=== PATIENT | male | born 1965 | race Caucasian/White ===

== ENCOUNTER 2019-09-27 14:59 | Emergency (ER) | payer SELFPAY ==
[2019-09-27] MEDS ORDERED: Albuterol/Ipratropium 3.0-0.5 MG/3 ML Neb Soln NEB ONE ×4 (15:05→16:55)
[2019-09-27] MEDS ORDERED: methylPREDNISolone Sodium Succinate 125 MG/2 ML SDV IVPUSH ONE (15:05)
[2019-09-27 15:51] LABS: BLOOD UREA NITROGEN,BUN 11 mg/dL (7.0-18.0); CARBON DIOXIDE,CO2 27.9 mmol/L (21.0-32.0); CHLORIDE,CL 104 mmol/L (98-107); GLUCOSE RANDOM 160 mg/dL (74-106); POTASSIUM,K 4.1 mmol/L (3.5-5.1); SODIUM,NA 142 mmol/L (136-148)
[2019-09-27] MEDS ORDERED: Albuterol 0.5% 5 MG/ML Neb Soln 20 ML Bottle NEB ONE (16:23)
--- NOTE | 2019-09-27 16:31 | CR ---
Chest: 2 views of the chest were obtained. Comparison: No previous chest x-ray. Heart size and mediastinum are normal. Lungs are clear. Small azygos lobe is noted. Bony structures appear within normal limits for the patient's age. Impression: 1. Nothing acute is appreciated on 2 view chest x-ray. Diagnostic code #2 This report was dictated in [place] Standard Time
--- NOTE | 2019-09-27 16:36 | EDM.PDOC ---
ED HPI GENERAL MEDICAL PROBLEM - General Chief Complaint: Respiratory Problem Stated Complaint: SOB Time Seen by Provider: 09/27/19 14:59 - History of Present Illness INITIAL COMMENTS - FREE TEXT/NARRATIVE: 54-year-old male presents with shortness of breath and coughing. Patient has a history of COPD is not to take his medication for more than 2 months. Patient is a history of peripheral neuropathy for unknown reason. These symptoms have not changed. Patient reports a four-day history of worsening cough and this morning he had difficulty walking to his car. Patient denies any recent trips or travels. Patient has any history of heart disease. Patient denies any chest pain or palpitations. Patient denies : General: No fevers or chills. No malaise or fatigue. No recent change in weight. No thirst. Heent: No change in vision, no earache, sore throat or sinus congestion. Neck: No pain or stiffness. Cardiovascular: No chest pain or pressure. No palpitations. Gastrointestinal: No abdominal pain, nausea, vomiting or diarrhea, melena or bright red blood per rectum. Genitourinary: No urinary frequency, urgency, hesitancy or dysuria. Muskuloskeletal: No joint or muscle pain, no back pain, no recent trauma. Dermatologic: No rash, no itching, no lesions. Neuro: No headache, seizures, numbness, tingling or weakness. Psych: No depressive symptoms. - Related Data Allergies Allergy/AdvReac Type Severity Reaction Status Date / Time codeine Allergy Itching Verified 09/27/19 15:11 Home Meds: Home Meds predniSONE [Prednisone] 40 mg PO DAILY #8 tablet 09/27/19 [Rx] Past Medical History Respiratory History: Reports: COPD - Infectious Disease History Infectious Disease History: Reports: Chicken Pox - Past Surgical History HEENT Surgical History: Reports: Tonsillectomy Musculoskeletal Surgical History: Reports: Other (See Below) Other Musculoskeletal Surgeries/Procedures:: Right Femur x3 Social & Family History - Family History Family Medical History: Noncontributory - Tobacco Use Smoking Status *Q: Never Smoker - Alcohol Use Days Per Week of Alcohol Use: 7 Number of Drinks Per Day: 6 Total Drinks Per Week: 42 - Recreational Drug Use Recreational Drug Use: Yes Drug Use in Last 12 Months: Yes Recreational Drug Type: Reports: Methamphetamine Recreational Drug Use Frequency: Monthly ED ROS GENERAL - Review of Systems Review Of Systems: Comprehensive ROS is negative, except as noted in HPI. ED EXAM, GENERAL - Physical Exam Exam: See Below Free Text/Narrative:: General: No acute distress. Comfortable. Heent: Examination revealed no pallor, no icterus, no lymphadenopathy. The patient has normal posterior pharynx, moist mucous membranes. Neck: Supple. No JVD. No rigidity. Heart: Normal rate. Reg rhythm. No murmurs appreciated. Lungs: Significant widespread wheezing. Symmetric. No focal findings. Abdomen: Nontender, non-distended, soft, no CVA tenderness. Neuro: Pt is moving all four extremities. EOMI. PERRL. Normal speech. Skin: Exposed areas appeared normally perfused, warm, normal color with no meaningful rashes or lesions. Extremities: Peripheral examination revealed no pedal edema. Peripheral pulses were 2+. EKG INTERPRETATION EKG Date: 09/27/19 Time: 16:04 Rhythm: Other (S tach) Rate (Beats/Min): 100 Comparison: NA - No Prior EKG EKG Interpretation Comments: QRS wide. Left axis deviation. Right bundle branch block. No clear evidence of ischemia. No previous EKG. Course - Vital Signs Last Recorded V/S: Last Vital Signs Temp 36.4 C 09/27/19 15:09 Pulse 102 H 09/27/19 16:12 Resp 22 H 09/27/19 15:09 BP 140/90 09/27/19 16:12 Pulse Ox 96 09/27/19 16:12 - Orders/Labs/Meds Orders: Active Orders 24 hr Category Date Time Status EKG Documentation Completion [RC] STAT Care 09/27/19 15:06 Active RT Aerosol Therapy [RC] ASDIRECTED Care 09/27/19 15:05 Active RT Aerosol Therapy [RC] ASDIRECTED Care 09/27/19 16:24 Active UA RFX NGUYEN AND CULT IF INDIC [URIN] Stat Lab 09/27/19 15:05 Ordered Labs: Laboratory Tests 09/27/19 09/27/19 09/27/19 Range/Units 15:15 15:15 15:15 WBC 6.28 (4.0-11.0) K/uL RBC 5.21 (4.50-5.90) M/uL Hgb 17.0 (13.0-17.0) g/dL Hct 49.9 (38.0-50.0) % MCV 95.8 (80.0-98.0) fL MCH 32.6 H (27.0-32.0) pg MCHC 34.1 (31.0-37.0) g/dL RDW Std Deviation 45.5 (28.0-62.0) fl RDW Coeff of Stu 13 (11.0-15.0) % Plt Count 214 (150-400) K/uL MPV 9.80 (7.40-12.00) fL Neut % (Auto) 31.2 L (48.0-80.0) % Lymph % (Auto) 47.9 H (16.0-40.0) % [place] % (Auto) 10.8 (0.0-15.0) % Eos % (Auto) 9.1 H (0.0-7.0) % Baso % (Auto) 1.0 (0.0-1.5) % Neut # (Auto) 2.0 (1.4-5.7) K/uL Lymph # (Auto) 3.0 H (0.6-2.4) K/uL [place] # (Auto) 0.7 (0.0-0.8) K/uL Eos # (Auto) 0.6 (0.0-0.7) K/uL Baso # (Auto) 0.1 (0.0-0.1) K/uL Nucleated RBC % 0.0 /100WBC Nucleated RBCs # 0 K/uL D-Dimer, Quantitative 0.19 (0.0-0.50) mg/L FEU VBG pH (7.31-7.41) VBG pCO2 (35-45) mmHG VBG pO2 (30-40) mmHG VBG HCO3 (22-30) mEq/L VBG Total CO2 (41-51) mmol/L VBG Base Excess (-3.0-3.0) Sodium 142 (136-148) mmol/L Potassium 4.1 (3.5-5.1) mmol/L Chloride 104 (98-107) mmol/L Carbon Dioxide 27.9 (21.0-32.0) mmol/L BUN 11 (7.0-18.0) mg/dL Creatinine 1.1 (0.8-1.3) mg/dL Est Cr Clr Drug Dosing 87.18 mL/min Estimated GFR (MDRD) > 60.0 ml/min Glucose 160 H (74-106) mg/dL Calcium 8.6 (8.5-10.1) mg/dL Total Bilirubin 0.4 (0.2-1.0) mg/dL AST 32 (15-37) IU/L ALT 67 H (14-63) IU/L Alkaline Phosphatase 66 (46-116) U/L Troponin I < 0.050 (0.000-0.056) ng/mL Total Protein 7.4 (6.4-8.2) g/dL Albumin 4.0 (3.4-5.0) g/dL Globulin 3.4 (2.6-4.0) g/dL Albumin/Globulin Ratio 1.2 (0.9-1.6) 09/27/19 Range/Units 15:15 WBC (4.0-11.0) K/uL RBC (4.50-5.90) M/uL Hgb (13.0-17.0) g/dL Hct (38.0-50.0) % MCV (80.0-98.0) fL MCH (27.0-32.0) pg MCHC (31.0-37.0) g/dL RDW Std Deviation (28.0-62.0) fl RDW Coeff of Stu (11.0-15.0) % Plt Count (150-400) K/uL MPV (7.40-12.00) fL Neut % (Auto) (48.0-80.0) % Lymph % (Auto) (16.0-40.0) % [place] % (Auto) (0.0-15.0) % Eos % (Auto) (0.0-7.0) % Baso % (Auto) (0.0-1.5) % Neut # (Auto) (1.4-5.7) K/uL Lymph # (Auto) (0.6-2.4) K/uL [place] # (Auto) (0.0-0.8) K/uL Eos # (Auto) (0.0-0.7) K/uL Baso # (Auto) (0.0-0.1) K/uL Nucleated RBC % /100WBC Nucleated RBCs # K/uL D-Dimer, Quantitative (0.0-0.50) mg/L FEU VBG pH 7.39 (7.31-7.41) VBG pCO2 48 H (35-45) mmHG VBG pO2 30 (30-40) mmHG VBG HCO3 29 (22-30) mEq/L VBG Total CO2 25 L (41-51) mmol/L VBG Base Excess 2.6 (-3.0-3.0) Sodium (136-148) mmol/L Potassium (3.5-5.1) mmol/L Chloride (98-107) mmol/L Carbon Dioxide (21.0-32.0) mmol/L BUN (7.0-18.0) mg/dL Creatinine (0.8-1.3) mg/dL Est Cr Clr Drug Dosing mL/min Estimated GFR (MDRD) ml/min Glucose (74-106) mg/dL Calcium (8.5-10.1) mg/dL Total Bilirubin (0.2-1.0) mg/dL AST (15-37) IU/L ALT (14-63) IU/L Alkaline Phosphatase (46-116) U/L Troponin I (0.000-0.056) ng/mL Total Protein (6.4-8.2) g/dL Albumin (3.4-5.0) g/dL Globulin (2.6-4.0) g/dL Albumin/Globulin Ratio (0.9-1.6) Meds: Medications Discontinued Medications Generic Name Dose Route Start Last Admin Trade Name Miguelq PRN Reason Stop Dose Admin Albuterol 10 mg 09/27/19 16:23 09/27/19 16:57 Proventil Neb Soln NEB 09/27/19 16:24 Not Given ONETIME ONE Albuterol/Ipratropium 3 ml 09/27/19 15:05 09/27/19 15:18 Duoneb 3.0-0.5 Mg/3 Ml NEB 09/27/19 15:06 3 ml ONETIME ONE Administration Albuterol/Ipratropium Confirm 09/27/19 16:50 Duoneb 3.0-0.5 Mg/3 Ml Administered 09/27/19 16:51 Dose 9 ml .ROUTE .STK-MED ONE Albuterol/Ipratropium 3 ml 09/27/19 16:55 09/27/19 16:56 Duoneb 3.0-0.5 Mg/3 Ml NEB 09/27/19 16:56 3 ml ONETIME ONE Administration Albuterol/Ipratropium 3 ml 09/27/19 16:55 09/27/19 16:56 Duoneb 3.0-0.5 Mg/3 Ml NEB 09/27/19 16:56 3 ml ONETIME ONE Administration Albuterol/Ipratropium 3 ml 09/27/19 16:55 09/27/19 16:57 Duoneb 3.0-0.5 Mg/3 Ml NEB 09/27/19 16:56 3 ml ONETIME ONE Administration Methylprednisolone Sodium Succinate 125 mg 09/27/19 15:05 09/27/19 15:18 Solu-Medrol IVPUSH 09/27/19 15:06 125 mg ONETIME ONE Administration - Radiology Interpretation Free Text/Narrative:: The patient states he feels much better after respiratory treatments x4. In fact he is asking to go home now because he is feeling so much better. After initial albuterol treatment, the patient felt shaky and strange and began to hyperventilate some. Made him feel lightheaded but this resolved very well after 4 additional treatments. He began to have a productive cough and is wheezing improved greatly. The patient told the nurses stable time that he was ready to go home because he felt much better. Patient need to follow-up with a primary care provider. Patient will return with any worsening. Presentation not consistent with acute coronary syndrome. There is no old EKG to compare his EKG with however there is no chest pain no palpitations and nonischemic EKG. - Re-Assessments/Exams Free Text/Narrative Re-Assessment/Exam: Nuclear indication of pneumonia. No pneumonia on x-ray. No significant leukocytosis. Hold antibiotics. Follow primary care. 09/27/19 17:25 Free Text/Narrative Re-Assessment/Exam: Mild tachycardia on arrival after initial treatment. This would be expected given his albuterol. While tachycardia continues after multiple treatments here. Patient feels much better discharge home. 09/27/19 17:30 Departure - Departure Time of Disposition: 17:29 Disposition: Home, Self-Care 01 Condition: Good Clinical Impression: COPD exacerbation - Discharge Information Prescriptions: predniSONE [Prednisone] 40 mg PO DAILY #8 tablet Instructions: Chronic Obstructive Pulmonary Disease, [id number], How to Use a Metered Dose Inhaler Referrals: PCP,None [Primary Care Provider] - Forms: ED Department Discharge Additional Instructions: You were having a wheezing attack likely from chronic obstructive pulmonary disease. Take your prednisone as directed. You need to follow-up with a primary care provider. One is provided below. Return to emergency with any worsening whatsoever. [facility] - Primary Care [address] [place] [id number] [facility] [address] [place] [id number] The following information is given to patients seen in the emergency department who are being discharged to home. This information is to outline your options for follow-up care. We provide all patients seen in our emergency department with a follow-up referral. The need for follow-up, as well as the timing and circumstances, are variable depending upon the specifics of your emergency department visit. If you don't have a primary care physician on staff, we will provide you with a referral. We always advise you to contact your personal physician following an emergency department visit to inform them of the circumstance of the visit and for follow-up with them and/or the need for any referrals to a consulting specialist. The emergency department will also refer you to a specialist when appropriate. This referral assures that you have the opportunity for follow-up care with a specialist. All of these measure are taken in an effort to provide you with optimal care, which includes your follow-up. Under all circumstances we always encourage you to contact your private physician who remains a resource for coordinating your care. When calling for follow-up care, please make the office aware that this follow-up is from your recent emergency room visit. If for any reason you are refused follow-up, please contact the [facility] Emergency Department at and asked to speak to the emergency department charge nurse. Sepsis Event Note - Evaluation Sepsis Screening Result: No Definite Risk - Focused Exam Vital Signs: Vital Signs Temp Pulse Resp BP Pulse Ox 09/27/19 16:12 102 H 140/90 96 09/27/19 15:32 107 H 98 09/27/19 15:09 36.4 C 114 H 22 H 148/86 H 92 L Date Exam was Performed: 09/27/19 Time Exam was Performed: 17:18 - My Orders Last 24 Hours: My Active Orders 09/27/19 16:24 RT Aerosol Therapy [RC] ASDIRECTED - Assessment/Plan Last 24 Hours: My Active Orders 09/27/19 16:24 RT Aerosol Therapy [RC] ASDIRECTED
[2019-09-27] MEDS ORDERED: Albuterol/Ipratropium 3.0-0.5 MG/3 ML Neb Soln ONE (16:50)
== END 2019-09-27 19:19 | disposition home or self-care (01) ==
LOC: MW.ED 14:59
DX: J44.1 Chronic obstructive pulmonary disease with (acute) exacerbation (principal); Z88.5 Allergy status to narcotic agent
CPT/HCPCS: 36415; 71046; 80053; 82803; 84484; 85025; 85379; 93005; 96374; 99285; J2930; J7620-GY

== ENCOUNTER 2021-03-08 13:04 | Inpatient (IN) | payer SELFPAY ==
[2021-03-08] MEDS ORDERED: Sodium Chloride 0.9% 10 ML Syringe FLUSH PRN (13:09)
[2021-03-08] MEDS ORDERED: cefTRIAXone 1 GM in Premix Bag 1 BAG IV ONE (13:14)
--- NOTE | 2021-03-08 13:18 | EDM.PDOC ---
ED HPI GENERAL MEDICAL PROBLEM - General Chief Complaint: Neuro Symptoms/Deficits Stated Complaint: POSSIBLY STROKE Time Seen by Provider: 03/08/21 13:07 Source of Information: Reports: Patient - History of Present Illness INITIAL COMMENTS - FREE TEXT/NARRATIVE: Patient presents with for possible code stroke. Apparently the patient is a heavy drinker. He was found by his family on the ground this morning and there was concern for right-sided facial droop. The patient was sent to the emergency department for evaluation of code stroke. Patient states that he had some tingling to the side of his face. Patient denies any significant headache or chest pain. No exacerbating or alleviating conditions. Patient denies infectious complaints other than some redness to the skin the site of a recent tattoo placed to the left lateral leg. - Related Data Allergies Allergy/AdvReac Type Severity Reaction Status Date / Time codeine Allergy Itching Verified 09/27/19 15:11 Home Meds: Home Meds Albuterol Sulfate [Albuterol Sulfate Hfa] 2 inh IH QID PRN 03/08/21 [History] Sertraline [Zoloft] 50 mg PO DAILY 03/08/21 [History] atorvaSTATin [Lipitor] 20 mg PO BEDTIME 03/08/21 [History] lisinopriL [Lisinopril] 20 mg PO DAILY 03/08/21 [History] metFORMIN HCl [Metformin HCl] 500 mg PO BIDMEALS 03/08/21 [History] traZODone 50 mg PO BEDTIME PRN 03/08/21 [History] Past Medical History Respiratory History: Reports: COPD - Infectious Disease History Infectious Disease History: Reports: Chicken Pox - Past Surgical History HEENT Surgical History: Reports: Tonsillectomy Musculoskeletal Surgical History: Reports: Other (See Below) Other Musculoskeletal Surgeries/Procedures:: Right Femur x3 Social & Family History - Family History Family Medical History: No Pertinent Family History ED ROS GENERAL - Review of Systems Review Of Systems: Comprehensive ROS is negative, except as noted in HPI. Constitutional: Denies: Fever Respiratory: Denies: Shortness of Breath Cardiovascular: Denies: Chest Pain Neurological: Reports: Numbness, Weakness. Denies: Headache ED EXAM, GENERAL - Physical Exam Exam: See Below Free Text/Narrative:: CONSTITUTIONAL: Mild distress. diaphoretic SKIN: Warm, dry, and intact without rash HENT: Normocephalic, atraumatic, PULMONARY: clear to ausculation bilaterally. No rales, rhonchi, wheezing CARDIOVASCULAR: regular rate, No murmur, rubs, or gallops GASTROINTESTINAL: soft, nondistended, nontender NEUROLOGIC: normal speech, II-XII intact. light touch/5/5 power equal and symmetric in upper and lower extremities without deficit. Good peripheral vision. Patient able to read and describe context well. NIH stroke scale zero MUSCULOSKELETAL: no gross deformities, atraumatic PSYCHIATRIC: normal mood and affect #1 Interpretation Time: 13:52 EKG Interpretation Comments: 88, normal sinus rhythm, right bundle branch block, unchanged as compared to prior EKG in September Course - Vital Signs Text/Narrative:: Differential diagnosis: CVA, Stewart's palsy, EtOH intoxication, TIA, intracranial hemorrhage, alcohol withdrawal seizure, other Patient presents complaining of of facial droop. I have not seen any evidence of facial droop or acute focal neurologic deficit here, however, patient could have symptoms consistent with TIA. Patient be admitted for neuro checks plus or minus MRI is indicated. The remainder of the work-up is effectively unremarkable. Patient is not having chest pain, has unchanged EKG with negative troponin. Head CT is otherwise negative for acute bleed. Patient does have evidence of some EtOH intoxication that could be a contributing factor. Last Recorded V/S: Last Vital Signs Temp 36.3 C 03/08/21 13:05 Pulse 78 03/08/21 13:05 Resp 18 03/08/21 13:05 BP 142/70 H 03/08/21 13:05 Pulse Ox 98 03/08/21 13:05 - Orders/Labs/Meds Orders: Active Orders 24 hr Category Date Time Status CULTURE BLOOD [BC] Stat Lab 03/08/21 13:37 Received CULTURE BLOOD [BC] Stat Lab 03/08/21 13:37 Received DRUG SCREEN, URINE [URCHEM] Stat Lab 03/08/21 13:10 Ordered UA W/NGUYEN RFLX IF INDICATED [URIN] Stat Lab 03/08/21 13:11 Ordered Blood Culture x2 Reflex Set [OM.PC] Stat Oth 03/08/21 13:11 Ordered Medication Orders Acetaminophen (Acetaminophen 325 Mg Tab) 650 mg PO Q4H PRN PRN Reason: Pain (Mild 1-3)/fever Albuterol/Ipratropium (Albuterol/Ipratropium 3.0-0.5 Mg/3 Ml Neb Soln) 3 ml NEB Q4HRRT PRN PRN Reason: Shortness Of Breath/wheezing Aspirin (Aspirin 81 Mg Tab.Ec) 81 mg PO DAILY ONEAL Atorvastatin Calcium (Atorvastatin 40 Mg Tab) 80 mg PO BEDTIME ONEAL Docusate Sodium (Docusate Sodium 100 Mg Cap) 100 mg PO BID PRN PRN Reason: Constipation Folic Acid (Folic Acid 1 Mg Tab) 1 mg PO BEDTIME ONEAL Ceftriaxone Sodium/Dextrose 1 (gm/ Premix) 50 mls @ 100 mls/hr IV Q24H ONEAL Vancomycin HCl (Vancomycin 1.5 Gm/300 Ml) 300 mls @ 200 mls/hr IV Q12H ONEAL Lorazepam (Lorazepam 2 Mg/Ml Sdv) 0 mg IVPUSH Q2H PRN; Protocol PRN Reason: CIWA Ondansetron HCl (Ondansetron 4 Mg/2 Ml Sdv) 4 mg IVPUSH Q4H PRN PRN Reason: Nausea Pantoprazole Sodium (Pantoprazole 40 Mg Tab.Cr) 40 mg PO AC[facility]AKFAST [facility] Sodium Chloride (Sodium Chloride 0.9% 2.5 Ml Syringe) 2.5 ml FLUSH ASDIRECTED PRN PRN Reason: Keep Vein Open Thiamine HCl (Thiamine 100 Mg Tab) 100 mg PO BEDTIME ONEAL Vancomycin HCl (Pharmacy To Dose - Vancomycin) 1 dose .XX ASDIRECTED [facility] Labs: Laboratory Tests 03/08/21 03/08/21 03/08/21 Range/Units 13:00 13:00 13:00 WBC 10.66 (4.0-11.0) K/uL RBC 4.99 (4.50-5.90) M/uL Hgb 17.3 H (13.0-17.0) g/dL Hct 48.2 (38.0-50.0) % MCV 96.6 (80.0-98.0) fL MCH 34.7 H (27.0-32.0) pg MCHC 35.9 (31.0-37.0) g/dL RDW Std Deviation 47.0 (28.0-62.0) fl RDW Coeff of Stu 13 (11.0-15.0) % Plt Count 264 (150-400) K/uL MPV 9.90 (7.40-12.00) fL Neut % (Auto) 57.0 (48.0-80.0) % Lymph % (Auto) 29.1 (16.0-40.0) % [place] % (Auto) 10.8 (0.0-15.0) % Eos % (Auto) 2.7 (0.0-7.0) % Baso % (Auto) 0.4 (0.0-1.5) % Neut # (Auto) 6.1 H (1.4-5.7) K/uL Lymph # (Auto) 3.1 H (0.6-2.4) K/uL [place] # (Auto) 1.2 H (0.0-0.8) K/uL Eos # (Auto) 0.3 (0.0-0.7) K/uL Baso # (Auto) 0.0 (0.0-0.1) K/uL Nucleated RBC % 0.0 /100WBC Nucleated RBCs # 0 K/uL INR 1.07 Sodium 137 (136-148) mmol/L Potassium 4.3 (3.5-5.1) mmol/L Chloride 101 (98-107) mmol/L Carbon Dioxide 25.0 (21.0-32.0) mmol/L BUN 14 (7.0-18.0) mg/dL Creatinine 0.9 (0.8-1.3) mg/dL Est Cr Clr Drug Dosing 111.18 mL/min Estimated GFR (MDRD) > 60.0 ml/min Glucose 119 H (74-106) mg/dL Calcium 8.6 (8.5-10.1) mg/dL Total Bilirubin 0.9 (0.2-1.0) mg/dL AST 100 H (15-37) IU/L ALT 129 H (14-63) IU/L Alkaline Phosphatase 78 (46-116) U/L Creatine Kinase 258 (26-308) U/L Troponin I < 0.050 (0.000-0.056) ng/mL Total Protein 7.8 (6.4-8.2) g/dL Albumin 4.3 (3.4-5.0) g/dL Globulin 3.5 (2.6-4.0) g/dL Albumin/Globulin Ratio 1.2 (0.9-1.6) Ethyl Alcohol 150 mg/dL Meds: Medications Generic Name Dose Route Start Last Admin Trade Name Frephilippe PRN Reason Stop Dose Admin Acetaminophen 650 mg 03/08/21 15:40 Acetaminophen 325 Mg Tab PO Q4H PRN Pain (Mild 1-3)/fever Albuterol/Ipratropium 3 ml 03/08/21 15:40 Albuterol/Ipratropium 3.0-0.5 Mg/3 Ml Neb Soln NEB Q4HRRT PRN Shortness Of Breath/wheezing Aspirin 81 mg 03/08/21 16:00 Aspirin 81 Mg Tab.Ec PO DAILY ONEAL Atorvastatin Calcium 80 mg 03/08/21 21:00 Atorvastatin 40 Mg Tab PO BEDTIME ONEAL Docusate Sodium 100 mg 03/08/21 15:40 Docusate Sodium 100 Mg Cap PO BID PRN Constipation Folic Acid 1 mg 03/08/21 21:00 Folic Acid 1 Mg Tab PO BEDTIME ONEAL Ceftriaxone Sodium/Dextrose 1 50 mls @ 100 mls/hr 03/09/21 12:00 gm/ Premix IV Q24H ONEAL Vancomycin HCl 300 mls @ 200 mls/hr 03/08/21 17:00 Vancomycin 1.5 Gm/300 Ml IV Q12H ONEAL Lorazepam 0 mg 03/08/21 15:47 Lorazepam 2 Mg/Ml Sdv IVPUSH Q2H PRN CIWA Protocol Ondansetron HCl 4 mg 03/08/21 15:40 Ondansetron 4 Mg/2 Ml Sdv IVPUSH Q4H PRN Nausea Pantoprazole Sodium 40 mg 03/09/21 07:30 Pantoprazole 40 Mg Tab.Cr PO ACBREAKFAST [facility] Sodium Chloride 2.5 ml 03/08/21 15:40 Sodium Chloride 0.9% 2.5 Ml Syringe FLUSH ASDIRECTED PRN Keep Vein Open Thiamine HCl 100 mg 03/08/21 21:00 Thiamine 100 Mg Tab PO BEDTIME ONEAL Vancomycin HCl 1 dose 03/08/21 16:30 Pharmacy To Dose - Vancomycin .XX ASDIRECTED ONEAL Discontinued Medications Generic Name Dose Route Start Last Admin Trade Name Alin PRN Reason Stop Dose Admin Ceftriaxone Sodium/Dextrose 1 50 mls @ 100 mls/hr 03/08/21 13:14 03/08/21 15:17 gm/ Premix IV 03/08/21 13:43 100 mls/hr ONETIME ONE Administration Pantoprazole Sodium 40 mg/ 10 mls @ 300 mls/hr 03/08/21 16:04 Sodium Chloride IV 03/08/21 16:05 NOW ONE Sodium Chloride 10 ml 03/08/21 13:09 03/08/21 15:27 Sodium Chloride 0.9% 10 Ml Syringe FLUSH 10 ml ASDIRECTED PRN Administration Keep Vein Open Sodium Chloride 2.5 ml 03/08/21 13:09 03/08/21 15:27 Sodium Chloride 0.9% 2.5 Ml Syringe FLUSH 2.5 ml ASDIRECTED PRN Administration Keep Vein Open Departure - Departure Time of Disposition: 16:32 Disposition: Admitted As Inpatient 64 Condition: Good Clinical Impression: TIA (transient ischemic attack), ETOH abuse - Discharge Information Sepsis Event Note (ED) - Focused Exam Vital Signs: Vital Signs Temp Pulse Resp BP Pulse Ox 03/08/21 13:05 36.3 C 78 18 142/70 H 98 - My Orders Last 24 Hours: My Active Orders 03/08/21 13:10 DRUG SCREEN, URINE [URCHEM] Stat 03/08/21 13:11 UA W/NGUYEN RFLX IF INDICATED [URIN] Stat Blood Culture x2 Reflex Set [OM.PC] Stat 03/08/21 13:37 CULTURE BLOOD [BC] Stat CULTURE BLOOD [BC] Stat - Assessment/Plan Last 24 Hours: My Active Orders 03/08/21 13:10 DRUG SCREEN, URINE [URCHEM] Stat 03/08/21 13:11 UA W/NGUYEN RFLX IF INDICATED [URIN] Stat Blood Culture x2 Reflex Set [OM.PC] Stat 03/08/21 13:37 CULTURE BLOOD [BC] Stat CULTURE BLOOD [BC] Stat
--- NOTE | 2021-03-08 13:38 | CR ---
INDICATION: Chest Pain TECHNIQUE: Chest radiograph 1 view COMPARISON: 09/27/2019 FINDINGS: The sensitivity and specificity of the exam are moderately limited by the patient`s body habitus. Mediastinum: The mediastinum is normal in appearance. The heart silhouette is normal in size and morphology. Lung: There is an azygos fissure present which is a normal variant. Both lungs are clear. No sign of pleural effusion seen. No pneumothorax is identified. Bone and Soft tissue: Unremarkable for age. IMPRESSION: 1. No acute cardiopulmonary disease is seen. Dictated by Dustin Almazan MD @ 03/08/2021 1:37:31 PM Prelim Report By Dr. Dustin Almazan @ 03/08/2021 1:37:33 PM Dictated by: MD @ 03/08/2021 13:37:58 (Electronically Signed)
[2021-03-08 13:43] LABS: BLOOD UREA NITROGEN,BUN 14 mg/dL (7.0-18.0); CHLORIDE,CL 101 mmol/L (98-107); GLUCOSE RANDOM 119 mg/dL (74-106); POTASSIUM,K 4.3 mmol/L (3.5-5.1); SODIUM,NA 137 mmol/L (136-148)
--- NOTE | 2021-03-08 13:59 | CT ---
INDICATION: Stroke. COMPARISON: None. TECHNIQUE: CT of the head without IV contrast. Coronal and sagittal reconstructions are provided. FINDINGS: No intracranial hemorrhage, mass effect, or evidence of acute infarct. No midline shift. No abnormal extra-axial fluid collections. Normal caliber ventricular system. Orbits and extraocular muscles are symmetric. Near complete opacification of the left maxillary sinus. Scattered mild paranasal sinus mucosal thickening elsewhere. The mastoid air cells are clear. No acute fracture. Small benign-appearing calcification in the soft tissues adjacent to the right parotid gland. Soft tissues are otherwise unremarkable. IMPRESSION: : 1. No acute intracranial findings. 2. Near complete opacification of the left maxillary sinus and scattered paranasal sinus mucosal thickening. Please note that all CT scans at this facility use dose modulation, iterative reconstruction, and/or weight-based dosing when appropriate to reduce radiation dose to as low as reasonably achievable. Dictated by Fidelina Acosta MD @ 03/08/2021 1:57:[address] Fidelina Acosta @ Mar 08 2021 1:57PM
[2021-03-08] MEDS: Sodium Chloride 0.9% 2.5 ML Syringe FLUSH PRN ×3 (15:25→15:27)
[2021-03-08] MEDS ORDERED: Sodium Chloride 0.9% 2.5 ML Syringe FLUSH PRN (15:40)
[2021-03-08] MEDS ORDERED: Albuterol/Ipratropium 3.0-0.5 MG/3 ML Neb Soln NEB PRN (15:40)
[2021-03-08] MEDS ORDERED: Docusate Sodium 100 MG Cap PO PRN (15:40)
[2021-03-08] MEDS ORDERED: Ondansetron 4 MG/2 ML SDV IVPUSH PRN (15:40)
--- NOTE | 2021-03-08 15:50 | CT ---
DATE: 03/08/2021. CLINICAL HISTORY: Patient with acute neurological deficit. TECHNIQUE: Standard helical CT image acquisition through the head and neck after intravenous contrast bolus enhancement was performed. Multiplanar reconstructed images performed on a separate workstation. COMPARISON: None available. FINDINGS: The origins of the great vessels from the aortic arch are patent. The origins of the right and left vertebral arteries are patent. The common carotid arteries are patent. Mild atherosclerotic plaque involving the right carotid bifurcation but without significant stenoses at the origins of the proximal internal carotid arteries by NASCET criteria. The more distal cervical segments of the internal carotid arteries are patent. The cervical segments of the vertebral arteries are patent. No intracranial proximal large vessel occlusion or flow-limiting luminal stenosis. The visualized lung apices are unremarkable. The thyroid gland is unremarkable. There are degenerative changes in the cervical spine. IMPRESSION: 1. No intracranial proximal large vessel occlusion or flow limiting luminal stenosis. 2. Patent cervical arterial vasculature without hemodynamically significant luminal stenosis. Please note that all CT scans at this facility use dose modulation, iterative reconstruction, and/or weight-based dosing when appropriate to reduce radiation dose to as low as reasonably achievable. Dictated by Bandar Valdez MD @ 03/08/2021 3:50:[address] Bandar Valdez @ Mar 08 2021 3:50PM
--- NOTE | 2021-03-08 16:00 | PCM.HP.2 ---
H&P History of Present Illness - General Date of Service: 03/08/21 Admit Problem/Dx: Admission Diagnosis/Problem Admission Diagnosis/Problem TIA, Transient ischemic attack Source of Information: Patient, Old Records (Clinic record from today. ) History Limitations: Reports: No Limitations - History of Present Illness Initial Comments - Free Text/Narative: This 55-year-old male with past medical history of alcohol abuse, hyperlipidemia hypertension, diabetes type 2 and COPD presented to the ER for R facial numbness and L hand numbness. Patient reports last evening his son found him on the ground at his home and had no idea what had happened. He reports since then he has had intermittent R facial numbness and tingling along with L hand numbness. He went to his PCP office with these complaints and was sent to the ER for immediate evaluation for TIA/CVA. He denies visual concerns, no neck pain. He reports some difficultly ambulating, feeling unsteady. He denies chest pain or SOB. No fevers or chills. NO URI symptoms. He denies abdominal pain, reports mild intermittent diarrhea. Denies lower extremity swelling. He reports he recently received a tattoo on his R calf, in his living room. He denies drainage, but does report redness around this. Denies recreational drug use recently, but reports many years ago. Reports significant alcohol use, 8-10 beers daily plus half a pint of whiskey daily. He reports when he stops drinking he gets shaky but denies seizures or hallucinations in the past. Reports smokeless tobacco use, 1 can a day. In the ER no leukocytosis noted hemoglobin 17.3 platelet count 264,000. INR 1.07. Sodium 137 potassium 4.3 BUN 14 creatinine 0.9 glucose 119 bilirubin 0.9 AST 18 mildly elevated 100 and 129 respectively. CK 258 troponin negative ethyl alcohol 150. Head CT obtained on patient due to stroke code no acute intracranial findings, near complete opacification of left maxillary sinus and scattered paranasal sinus mucosal thickening. NIH scale upon arrival to the ER was 0. Chest x-ray obtained reveals no acute cardiopulmonary process. Patient treated with Rocephin. Vital signs 97.4 heart rate 78 blood pressure 142/70 respiratory rate 18 oxygen 98% on room air. EKG reveals sinus rhythm with right bundle branch block unchanged from prior EKG heart rate 88 no acute ischemic changes. Head and neck CTAs obtained which reveal no intracranial proximal large vessel occlusion or flow-limiting luminal stenosis. Patent cervical arterial vasculature without hemodynamically significant luminal stenosis. PCP, Dr Cervantes - Related Data Allergies/Adverse Reactions: Allergies Allergy/AdvReac Type Severity Reaction Status Date / Time codeine Allergy Itching Verified 09/27/19 15:11 Home Medications: Home Meds Albuterol Sulfate [Albuterol Sulfate Hfa] 2 inh IH QID PRN 03/08/21 [History] Sertraline [Zoloft] 50 mg PO DAILY 03/08/21 [History] atorvaSTATin [Lipitor] 20 mg PO BEDTIME 03/08/21 [History] lisinopriL [Lisinopril] 20 mg PO DAILY 03/08/21 [History] metFORMIN HCl [Metformin HCl] 500 mg PO BIDMEALS 03/08/21 [History] traZODone 50 mg PO BEDTIME PRN 03/08/21 [History] Past Medical History Cardiovascular History: Reports: High Cholesterol, Hypertension, Other (See Below) (reports he was told he had a blockage in his heart, but denies stents or further cardiology follow up). Denies: Afib, Blood Clots/VTE/DVT Respiratory History: Reports: COPD Gastrointestinal History: Denies: GERD Psychiatric History: Reports: Addiction, Depression Endocrine/Metabolic History: Reports: Diabetes, Type II, Obesity/BMI 30+ - Infectious Disease History Infectious Disease History: Reports: Chicken Pox - Past Surgical History HEENT Surgical History: Reports: Tonsillectomy Musculoskeletal Surgical History: Reports: Other (See Below) Other Musculoskeletal Surgeries/Procedures:: Right Femur x3 Social & Family History - Family History Family Medical History: No Pertinent Family History - Tobacco Use Tobacco Use Status *Q: Current Every Day Tobacco User Tobacco Use Within Last Twelve Months: Smokeless Tobacco Packs/Tins Daily: 1 - Caffeine Use Caffeine Use: Reports: None - Alcohol Use Alcohol Use History: Yes Days Per Week of Alcohol Use: 7 Number of Drinks Per Day: 12 Total Drinks Per Week: 84 Alcohol Use Frequency: Daily - Recreational Drug Use Recreational Drug Use: No H&P Review of Systems - Review of Systems: Review Of Systems: See Below General: Reports: Weakness (generalized). Denies: Fever, Chills, Malaise HEENT: Reports: No Symptoms. Denies: Headaches, Sore Throat, Vertigo Pulmonary: Reports: No Symptoms. Denies: Shortness of Breath, Wheezing Cardiovascular: Reports: No Symptoms. Denies: Chest Pain Gastrointestinal: Reports: No Symptoms. Denies: Abdominal Pain, Nausea, Vomiting Genitourinary: Reports: No Symptoms, Dysuria. Denies: Frequency Skin: Reports: Erythema (R calf around new tattoo) Psychiatric: Reports: No Symptoms. Denies: Hallucinations (Auditory), Hallucinations (Visual) Neurological: Reports: Tremors, Gait Disturbance. Denies: Numbness, Paresthesia Hematologic/Lymphatic: Reports: No Symptoms Immunologic: Reports: No Symptoms Exam - Exam Exam: See Below - Vital Signs Vital Signs: Last Vital Signs Temp 97.4 F 03/08/21 13:05 Pulse 78 03/08/21 13:05 Resp 18 03/08/21 13:05 BP 142/70 H 03/08/21 13:05 Pulse Ox 98 03/08/21 13:05 Weight: 117.934 kg - Exam Quality Assessment: DVT Prophylaxis. No: Supplemental Oxygen General: Alert, Oriented, Cooperative HEENT: Mucosa Moist & Cascade, Posterior Pharynx Clear, Pupils Equal. No: Conjunctiva Clear (blood shot eyes) Neck: Supple, Trachea Midline, +2 Carotid Pulse wo Bruit Lungs: Clear to Auscultation, Normal Respiratory Effort Cardiovascular: Regular Rhythm. No: Systolic Murmur GI/Abdominal Exam: Normal Bowel Sounds, Soft, Non-Tender, No Mass Extremities: Normal Inspection, Normal Range of Motion, Non-Tender, No Pedal Edema Skin: Other (erythema noted to R calf where new tattoo is. No drainage, minimal induration noted. increased warm.) Neurological: Cranial Nerves Intact, Strength Equal Bilateral. No: Normal Gait (mild ataxia noted) Neuro Extensive - Mental Status: Alert, Oriented x3, Normal Mood/Affect Neuro Extensive - Motor, Sensory, Reflexes: CN II-XII Intact, Ataxia, Tremor Psychiatric: Alert, Normal Affect, Normal Mood, Withdrawal Symptoms - Patient Data Lab Results Last 24 hrs: Laboratory Results - last 24 hr 03/08/21 03/08/21 03/08/21 Range/Units 13:00 13:00 13:00 WBC 10.66 (4.0-11.0) K/uL RBC 4.99 (4.50-5.90) M/uL Hgb 17.3 H (13.0-17.0) g/dL Hct 48.2 (38.0-50.0) % MCV 96.6 (80.0-98.0) fL MCH 34.7 H (27.0-32.0) pg MCHC 35.9 (31.0-37.0) g/dL RDW Std Deviation 47.0 (28.0-62.0) fl RDW Coeff of Stu 13 (11.0-15.0) % Plt Count 264 (150-400) K/uL MPV 9.90 (7.40-12.00) fL Neut % (Auto) 57.0 (48.0-80.0) % Lymph % (Auto) 29.1 (16.0-40.0) % [place] % (Auto) 10.8 (0.0-15.0) % Eos % (Auto) 2.7 (0.0-7.0) % Baso % (Auto) 0.4 (0.0-1.5) % Neut # (Auto) 6.1 H (1.4-5.7) K/uL Lymph # (Auto) 3.1 H (0.6-2.4) K/uL [place] # (Auto) 1.2 H (0.0-0.8) K/uL Eos # (Auto) 0.3 (0.0-0.7) K/uL Baso # (Auto) 0.0 (0.0-0.1) K/uL Nucleated RBC % 0.0 /100WBC Nucleated RBCs # 0 K/uL INR 1.07 Sodium 137 (136-148) mmol/L Potassium 4.3 (3.5-5.1) mmol/L Chloride 101 (98-107) mmol/L Carbon Dioxide 25.0 (21.0-32.0) mmol/L BUN 14 (7.0-18.0) mg/dL Creatinine 0.9 (0.8-1.3) mg/dL Est Cr Clr Drug Dosing 111.18 mL/min Estimated GFR (MDRD) > 60.0 ml/min Glucose 119 H (74-106) mg/dL Calcium 8.6 (8.5-10.1) mg/dL Total Bilirubin 0.9 (0.2-1.0) mg/dL AST 100 H (15-37) IU/L ALT 129 H (14-63) IU/L Alkaline Phosphatase 78 (46-116) U/L Creatine Kinase 258 (26-308) U/L Troponin I < 0.050 (0.000-0.056) ng/mL Total Protein 7.8 (6.4-8.2) g/dL Albumin 4.3 (3.4-5.0) g/dL Globulin 3.5 (2.6-4.0) g/dL Albumin/Globulin Ratio 1.2 (0.9-1.6) Ethyl Alcohol 150 mg/dL Result Diagrams: 03/08/21 13:00 03/08/21 13:00 Sepsis Event Note - Evaluation Sepsis Screening Result: No Definite Risk - Focused Exam Vital Signs: Vital Signs Temp Pulse Resp BP Pulse Ox 03/08/21 13:05 97.4 F 78 18 142/70 H 98 - Problem List (1) TIA (transient ischemic attack) SNOMED Code(s): 240505301 ICD Code: G45.9 - TRANSIENT CEREBRAL ISCHEMIC ATTACK, UNSPECIFIED Status: Acute Current Visit: Yes (2) Cellulitis and abscess of right leg SNOMED Code(s): 981886163 ICD Code: L03.115 - CELLULITIS OF RIGHT LOWER LIMB; L02.415 - CUTANEOUS ABSCESS OF RIGHT LOWER LIMB Status: Acute Current Visit: Yes (3) HTN (hypertension) SNOMED Code(s): 93019714 ICD Code: I10 - ESSENTIAL (PRIMARY) HYPERTENSION Status: Chronic Current Visit: Yes (4) Alcohol abuse SNOMED Code(s): 88478717 ICD Code: F10.10 - ALCOHOL ABUSE, UNCOMPLICATED Status: Chronic Current Visit: Yes (5) COPD (chronic obstructive pulmonary disease) SNOMED Code(s): 58050671 ICD Code: J44.9 - CHRONIC OBSTRUCTIVE PULMONARY DISEASE, UNSPECIFIED Stat us: Chronic Current Visit: Yes (6) DM type 2 (diabetes mellitus, type 2) SNOMED Code(s): 09445703 ICD Code: E11.9 - TYPE 2 DIABETES MELLITUS WITHOUT COMPLICATIONS Status: Chronic Current Visit: Yes Qualifiers: Diabetes mellitus senior care 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 Diabetes mellitus complication status: without complication Qualified Code(s): E11.9 - Type 2 diabetes mellitus without complications (7) HLD (hyperlipidemia) SNOMED Code(s): 10730041 ICD Code: E78.5 - HYPERLIPIDEMIA, UNSPECIFIED Status: Chronic Current Visit: Yes Problem List Initiated/Reviewed/Updated: Yes Orders Last 24hrs: Active Orders 24 hr Category Date Time Status Admission Status [Patient Status] [ADT] Stat ADT 03/08/21 14:50 Active Admission Status [Patient Status] [ADT] Stat ADT 03/08/21 14:51 Active Antiembolic Devices [RC] PER UNIT ROUTINE Care 03/08/21 15:43 Active Blood Glucose Check, Bedside [RC] TIDMEALS Care 03/08/21 15:40 Active CIWAA Assessment [RC] Q4H Care 03/08/21 15:47 Active Cardiac Monitoring [RC] . DIRECTED Care 03/08/21 13:10 Active Intake and Output [RC] QSHIFT Care 03/08/21 15:43 Active Oxygen Therapy [RC] PRN Care 03/08/21 15:40 Active Pulse Oximetry [RC] ASDIRECTED Care 03/08/21 13:10 Active RT Aerosol Therapy [RC] ASDIRECTED Care 03/08/21 15:46 Active Up With Assistance [RC] ASDIRECTED Care 03/08/21 15:40 Active VTE/DVT Education [RC] PER UNIT ROUTINE Care 03/08/21 15:40 Active Vital Signs [RC] Q4H Care 03/08/21 15:40 Active PT Evaluation and Treatment [CONS] Routine Cons 03/08/21 15:40 Active Heart Healthy Diet [DIET] Diet 03/08/21 Lunch Active CBC WITH AUTO DIFF [HEME] AM Lab 03/09/21 05:11 Ordered COMPREHENSIVE METABOLIC PN,CMP [CHEM] AM Lab 03/09/21 05:11 Ordered CORONAVIRUS COVID-19 DANIAL [MOLEC] Stat Lab 03/08/21 15:04 Received CULTURE BLOOD [BC] Stat Lab 03/08/21 13:37 Received CULTURE BLOOD [BC] Stat Lab 03/08/21 13:37 Received DRUG SCREEN, URINE [URCHEM] Stat Lab 03/08/21 13:10 Ordered MAGNESIUM [CHEM] AM Lab 03/09/21 05:11 Ordered UA W/NGUYEN RFLX IF INDICATED [URIN] Stat Lab 03/08/21 13:11 Ordered VITAMIN B12 [CHEM] Routine Lab 03/08/21 15:47 Ordered Acetaminophen [TylenoL] Med 03/08/21 15:40 Active 650 mg PO Q4H PRN Albuterol/Ipratropium [DuoNeb 3.0-0.5 MG/3 ML] Med 03/08/21 15:40 Active 3 ml NEB Q4HRRT PRN Docusate Sodium [Colace] Med 03/08/21 15:40 Active 100 mg PO BID PRN Folic Acid Med 03/08/21 21:00 Active 1 mg PO BEDTIME LORazepam [Ativan] Med 03/08/21 15:47 Ordered See Protocol IVPUSH Q2H PRN Ondansetron [Zofran] Med 03/08/21 15:40 Ordered 4 mg IVPUSH Q4H PRN Sodium Chloride 0.9% [Saline Flush] Med 03/08/21 13:09 Active 10 ml FLUSH ASDIRECTED PRN Sodium Chloride 0.9% [Saline Flush] Med 03/08/21 13:09 Active 2.5 ml FLUSH ASDIRECTED PRN Sodium Chloride 0.9% [Saline Flush] Med 03/08/21 15:40 Ordered 2.5 ml FLUSH ASDIRECTED PRN Thiamine [Vitamin B-1] Med 03/08/21 21:00 Ordered 100 mg PO BEDTIME Blood Culture x2 Reflex Set [OM.PC] Stat Oth 03/08/21 13:11 Ordered Saline Lock Insert [OM.PC] Routine Oth 03/08/21 15:40 Ordered Saline Lock Insert [OM.PC] Stat Oth 03/08/21 13:10 Ordered Sequential Compression Device [OM.PC] Per Unit Routine Oth 03/08/21 15:43 Ordered Medication Orders Acetaminophen (Acetaminophen 325 Mg Tab) 650 mg PO Q4H PRN PRN Reason: Pain (Mild 1-3)/fever Albuterol/Ipratropium (Albuterol/Ipratropium 3.0-0.5 Mg/3 Ml Neb Soln) 3 ml NEB Q4HRRT PRN PRN Reason: Shortness Of Breath/wheezing Docusate Sodium (Docusate Sodium 100 Mg Cap) 100 mg PO BID PRN PRN Reason: Constipation Folic Acid (Folic Acid 1 Mg Tab) 1 mg PO BEDTIME ONEAL Lorazepam (Lorazepam 2 Mg/Ml Sdv) 0 mg IVPUSH Q2H PRN; Protocol PRN Reason: CIWA Ondansetron HCl (Ondansetron 4 Mg/2 Ml Sdv) 4 mg IVPUSH Q4H PRN PRN Reason: Nausea Sodium Chloride (Sodium Chloride 0.9% 10 Ml Syringe) 10 ml FLUSH ASDIRECTED PRN PRN Reason: Keep Vein Open Last Admin: 03/08/21 15:27 Dose: 10 ml Documented by: JOSE DE JESUS Sodium Chloride (Sodium Chloride 0.9% 2.5 Ml Syringe) 2.5 ml FLUSH ASDIRECTED PRN PRN Reason: Keep Vein Open Last Admin: 03/08/21 15:27 Dose: 2.5 ml Documented by: JOSE DE JESUS Admin: 03/08/21 15:26 Dose: 2.5 ml Documented by: JOSE DE JESUS Admin: 03/08/21 15:25 Dose: 2.5 ml Documented by: JOSE DE JESUS Sodium Chloride (Sodium Chloride 0.9% 2.5 Ml Syringe) 2.5 ml FLUSH ASDIRECTED PRN PRN Reason: Keep Vein Open Thiamine HCl (Thiamine 100 Mg Tab) 100 mg PO BEDTIME ONEAL Assessment/Plan Comment:: This 55-year-old male omitted with TIA like symptoms 1. TIA Symptoms resolved upon arrival to ER Head CT negative CTA head and neck obtained which are negative. Will obtain echo We will obtain lipid panel, TSH and A1c Monitor on telemetry Neuro checks every 4 Consult PT for evaluation and treatment. add ASA 81 mg and Atorvastatin 80 mg Obtain MRI brain in am 2. R lower leg cellulitis Add Vancomycin and continue Rocephin BC pending 3. Alcohol abuse CIWA assessment with Ativan per protocol Supplement with thiamine folic acid Check B12 levels Encourage sobriety 4. Hypertension Monitor blood pressure Restart home lisinopril Continue statin start aspirin 5. DM type II 3 times daily AC blood sugars NovoLog sliding scale Hold Metformin ADA diet We will check A1c 6. COPD DuoNebs as needed Continue albuterol inhaler VTE prophylaxis: SCDs and ambulation GI prophylaxis: Protonix CODE STATUS: Full Code Dispo: 1-2 days pending improvement
[2021-03-08] MEDS ORDERED: Pantoprazole 40 MG in Sodium Chloride 0.9% 10 ML IV ONE (16:04)
[2021-03-08] MEDS: Aspirin 81 MG Tab.EC PO SCH (16:44)
[2021-03-08] MEDS ORDERED: Iopamidol 755 MG/ML 500 ML Multipack Bottle IVPUSH STA (17:04)
[2021-03-08] MEDS: VANCOmycin 1.5 GM/300 ML 300 ML IV SCH (17:08)
[2021-03-08] MEDS: LORazepam 2 MG/ML SDV IVPUSH PRN ×2 (18:24→22:20)
[2021-03-08] MEDS: atorvaSTATin 40 MG Tab PO SCH (22:11)
[2021-03-08] MEDS: Folic Acid 1 MG Tab PO SCH (22:11)
[2021-03-08] MEDS: Thiamine 100 MG Tab PO SCH (22:11)
[2021-03-09] MEDS: VANCOmycin 1.5 GM/300 ML 300 ML IV SCH ×2 (04:50→16:16)
[2021-03-09] MEDS: LORazepam 2 MG/ML SDV IVPUSH PRN (05:05)
[2021-03-09 06:29] LABS: BLOOD UREA NITROGEN,BUN 13 mg/dL (7.0-18.0); CARBON DIOXIDE,CO2 28.5 mmol/L (21.0-32.0); CHLORIDE,CL 98 mmol/L (98-107); GLUCOSE RANDOM 124 mg/dL (74-106); POTASSIUM,K 4.1 mmol/L (3.5-5.1); SODIUM,NA 135 mmol/L (136-148)
[2021-03-09 06:32] LABS: HEMOGLOBIN A1C 5.6 %
[2021-03-09] MEDS: Pantoprazole 40 MG Tab.CR PO SCH (06:32)
[2021-03-09] MEDS ORDERED: Gadobenate Dimeglumine 529 MG/ML 20 ML SDV IVPUSH STA (07:26)
[2021-03-09] MEDS: Sertraline 50 MG Tab PO SCH (08:37)
[2021-03-09] MEDS: Aspirin 81 MG Tab.EC PO SCH (08:37)
--- NOTE | 2021-03-09 08:47 | MR ---
INDICATION: TIA. TECHNIQUE: Sagittal T1 axial FLAIR T2 diffusion-weighted susceptibility weighted and gadolinium-enhanced volumetric T1 weighted sequences. COMPARISON: CT and CTA examinations 03/08/2021. Findings : No evidence of acute ischemic infarction. No areas of diffusion restriction. No evidence of intracranial hemorrhage. Ventricles are normal in size and configuration. Motion artifact is noted on most sequences. Few small foci of nonenhancing FLAIR/T2 hyperintensity within the cerebral white matter consistent with mild chronic microvascular ischemia. Small incidental arachnoid cyst in the left middle cranial fossa is a developmental variant and has doubtful significance. Brainstem and cerebellum appear normal. The opacified left maxillary sinus and bilateral ethmoid air cells consistent with chronic sinus inflammation. IMPRESSION: 1. No evidence of acute infarction, intracranial hemorrhage, mass or enhancing lesion. 2. Mild chronic microvascular ischemic changes. 3. Inflammatory opacification left maxillary and bilateral ethmoid air cells. Dictated by Marvin Herman MD @ 03/09/2021 8:45:[address] Marvin Herman @ Mar 09 2021 8:45AM
[2021-03-09] MEDS: cefTRIAXone 1 GM in Premix Bag 1 BAG IV SCH (11:18)
[2021-03-09] MEDS ORDERED: Diazepam 5 MG Tab PO SCH (12:30)
[2021-03-09] MEDS: Diazepam 5 MG Tab PO SCH ×2 (14:05→23:31)
--- NOTE | 2021-03-09 17:51 | PCM.PN ---
- General Info Date of Service: 03/09/21 Admission Dx/Problem (Free Text): Admission Diagnosis/Problem Admission Diagnosis/Problem TIA, Transient ischemic attack - Review of Systems General: Reports: Weakness. Denies: Fever, Chills, Night Sweats HEENT: Denies: Headaches, Sore Throat Pulmonary: Denies: Pleuritic Chest Pain, Cough, Sputum, Wheezing Cardiovascular: Denies: Chest Pain, Palpitations, Edema Gastrointestinal: Denies: Abdominal Pain Genitourinary: Reports: No Symptoms Musculoskeletal: Reports: Leg Pain. Denies: Joint Pain, Joint Swelling Skin: Denies: Pruritis Neurological: Reports: Tremors, Trouble Speaking, Weakness. Denies: Confusion, Dizziness, Headache, Numbness, Paresthesia, Seizure, Syncope, Tingling, Difficulty Walking, Change in Speech, Gait Disturbance Psychiatric: Reports: Anxiety. Denies: Confusion, Depression - Patient Data Vitals - Most Recent: Last Vital Signs Temp 98.2 F 03/09/21 16:11 Pulse 67 03/09/21 16:11 Resp 20 03/09/21 16:11 BP 158/73 H 03/09/21 16:11 Pulse Ox 97 03/09/21 16:11 Weight - Most Recent: 278 lb 3.2 oz I&O - Last 24 Hours: Intake & Output 03/09/21 03/09/21 03/09/21 06:59 14:59 22:59 Intake Total 850 1000 Output Total 250 Balance 600 1000 Lab Results Last 24 Hours: Laboratory Results - last 24 hr 03/08/21 03/08/21 03/09/21 Range/Units 18:30 18:30 05:05 WBC 6.76 (4.0-11.0) K/uL RBC 4.55 (4.50-5.90) M/uL Hgb 15.5 (13.0-17.0) g/dL Hct 43.9 (38.0-50.0) % MCV 96.5 (80.0-98.0) fL MCH 34.1 H (27.0-32.0) pg MCHC 35.3 (31.0-37.0) g/dL RDW Std Deviation 45.5 (28.0-62.0) fl RDW Coeff of Stu 13 (11.0-15.0) % Plt Count 203 (150-400) K/uL MPV 9.80 (7.40-12.00) fL Neut % (Auto) 49.8 (48.0-80.0) % Lymph % (Auto) 28.8 (16.0-40.0) % [place] % (Auto) 14.2 (0.0-15.0) % Eos % (Auto) 6.8 (0.0-7.0) % Baso % (Auto) 0.4 (0.0-1.5) % Neut # (Auto) 3.4 (1.4-5.7) K/uL Lymph # (Auto) 2.0 (0.6-2.4) K/uL [place] # (Auto) 1.0 H (0.0-0.8) K/uL Eos # (Auto) 0.5 (0.0-0.7) K/uL Baso # (Auto) 0.0 (0.0-0.1) K/uL Nucleated RBC % 0.0 /100WBC Nucleated RBCs # 0 K/uL Sodium (136-148) mmol/L Potassium (3.5-5.1) mmol/L Chloride (98-107) mmol/L Carbon Dioxide (21.0-32.0) mmol/L BUN (7.0-18.0) mg/dL Creatinine (0.8-1.3) mg/dL Est Cr Clr Drug Dosing mL/min Estimated GFR (MDRD) ml/min Glucose (74-106) mg/dL POC Glucose (70-99) mg/dL Hemoglobin A1c (4.5 - 6.2) % Calcium (8.5-10.1) mg/dL Magnesium (1.8-2.4) mg/dL Total Bilirubin (0.2-1.0) mg/dL AST (15-37) IU/L ALT (14-63) IU/L Alkaline Phosphatase (46-116) U/L Total Protein (6.4-8.2) g/dL Albumin (3.4-5.0) g/dL Globulin (2.6-4.0) g/dL Albumin/Globulin Ratio (0.9-1.6) Triglycerides (0-200) mg/dL Cholesterol (50-200) mg/dL LDL Cholesterol, Calc (60-180) mg/dL VLDL Cholesterol (5-55) mg/dL HDL Cholesterol (40-60) mg/dL Cholesterol/HDL Ratio (3.3-6.0) TSH, Ultra Sensitive (0.36-3.74) uIU/mL Urine Color YELLOW Urine Appearance CLEAR Urine pH 5.5 (5.0-8.0) Ur Specific [place] 1.020 (1.001-1.035) Urine Protein NEGATIVE (NEGATIVE) mg/dL Urine Glucose (UA) NEGATIVE (NEGATIVE) mg/dL Urine Ketones 15 H (NEGATIVE) mg/dL Urine Occult Blood TRACE-INTACT H (NEGATIVE) Urine Nitrite NEGATIVE (NEGATIVE) Urine Bilirubin NEGATIVE (NEGATIVE) Urine Urobilinogen 1.0 (<2.0) EU/dL Ur Leukocyte Esterase NEGATIVE (NEGATIVE) Urine RBC 1-3 (0-2/HPF) Urine WBC 0-1 (0-5/HPF) Ur Epithelial Cells RARE (NONE-FEW) Urine Bacteria RARE (NEGATIVE) Urine Opiates Screen NEGATIVE (NEGATIVE) Ur Oxycodone Screen NEGATIVE (NEGATIVE) Urine Methadone Screen NEGATIVE (NEGATIVE) Ur Barbiturates Screen NEGATIVE (NEGATIVE) Ur Phencyclidine Scrn NEGATIVE (NEGATIVE) Ur Amphetamine Screen NEGATIVE (NEGATIVE) U Methamphetamines Scrn NEGATIVE (NEGATIVE) U Benzodiazepines Scrn NEGATIVE (NEGATIVE) U Cocaine Metab Screen NEGATIVE (NEGATIVE) U Marijuana (THC) Screen NEGATIVE (NEGATIVE) 03/09/21 03/09/21 03/09/21 Range/Units 05:05 05:05 06:29 WBC (4.0-11.0) K/uL RBC (4.50-5.90) M/uL Hgb (13.0-17.0) g/dL Hct (38.0-50.0) % MCV (80.0-98.0) fL MCH (27.0-32.0) pg MCHC (31.0-37.0) g/dL RDW Std Deviation (28.0-62.0) fl RDW Coeff of Stu (11.0-15.0) % Plt Count (150-400) K/uL MPV (7.40-12.00) fL Neut % (Auto) (48.0-80.0) % Lymph % (Auto) (16.0-40.0) % [place] % (Auto) (0.0-15.0) % Eos % (Auto) (0.0-7.0) % Baso % (Auto) (0.0-1.5) % Neut # (Auto) (1.4-5.7) K/uL Lymph # (Auto) (0.6-2.4) K/uL [place] # (Auto) (0.0-0.8) K/uL Eos # (Auto) (0.0-0.7) K/uL Baso # (Auto) (0.0-0.1) K/uL Nucleated RBC % /100WBC Nucleated RBCs # K/uL Sodium 135 L (136-148) mmol/L Potassium 4.1 (3.5-5.1) mmol/L Chloride 98 (98-107) mmol/L Carbon Dioxide 28.5 (21.0-32.0) mmol/L BUN 13 (7.0-18.0) mg/dL Creatinine 0.8 (0.8-1.3) mg/dL Est Cr Clr Drug Dosing 118.45 mL/min Estimated GFR (MDRD) > 60.0 ml/min Glucose 124 H (74-106) mg/dL POC Glucose 131 H (70-99) mg/dL Hemoglobin A1c 5.6 (4.5 - 6.2) % Calcium 8.1 L (8.5-10.1) mg/dL Magnesium 1.7 L (1.8-2.4) mg/dL Total Bilirubin 1.3 H (0.2-1.0) mg/dL AST 53 H (15-37) IU/L ALT 91 H (14-63) IU/L Alkaline Phosphatase 65 (46-116) U/L Total Protein 6.4 (6.4-8.2) g/dL Albumin 3.5 (3.4-5.0) g/dL Globulin 2.9 (2.6-4.0) g/dL Albumin/Globulin Ratio 1.2 (0.9-1.6) Triglycerides 86 (0-200) mg/dL Cholesterol 133 (50-200) mg/dL LDL Cholesterol, Calc 60 (60-180) mg/dL VLDL Cholesterol 17 (5-55) mg/dL HDL Cholesterol 56 (40-60) mg/dL Cholesterol/HDL Ratio 2.4 L (3.3-6.0) TSH, Ultra Sensitive 2.37 (0.36-3.74) uIU/mL Urine Color Urine Appearance Urine pH (5.0-8.0) Ur Specific [place] (1.001-1.035) Urine Protein (NEGATIVE) mg/dL Urine Glucose (UA) (NEGATIVE) mg/dL Urine Ketones (NEGATIVE) mg/dL Urine Occult Blood (NEGATIVE) Urine Nitrite (NEGATIVE) Urine Bilirubin (NEGATIVE) Urine Urobilinogen (<2.0) EU/dL Ur Leukocyte Esterase (NEGATIVE) Urine RBC (0-2/HPF) Urine WBC (0-5/HPF) Ur Epithelial Cells (NONE-FEW) Urine Bacteria (NEGATIVE) Urine Opiates Screen (NEGATIVE) Ur Oxycodone Screen (NEGATIVE) Urine Methadone Screen (NEGATIVE) Ur Barbiturates Screen (NEGATIVE) Ur Phencyclidine Scrn (NEGATIVE) Ur Amphetamine Screen (NEGATIVE) U Methamphetamines Scrn (NEGATIVE) U Benzodiazepines Scrn (NEGATIVE) U Cocaine Metab Screen (NEGATIVE) U Marijuana (THC) Screen (NEGATIVE) 03/09/21 03/09/21 Range/Units 11:45 16:43 WBC (4.0-11.0) K/uL RBC (4.50-5.90) M/uL Hgb (13.0-17.0) g/dL Hct (38.0-50.0) % MCV (80.0-98.0) fL MCH (27.0-32.0) pg MCHC (31.0-37.0) g/dL RDW Std Deviation (28.0-62.0) fl RDW Coeff of Stu (11.0-15.0) % Plt Count (150-400) K/uL MPV (7.40-12.00) fL Neut % (Auto) (48.0-80.0) % Lymph % (Auto) (16.0-40.0) % [place] % (Auto) (0.0-15.0) % Eos % (Auto) (0.0-7.0) % Baso % (Auto) (0.0-1.5) % Neut # (Auto) (1.4-5.7) K/uL Lymph # (Auto) (0.6-2.4) K/uL [place] # (Auto) (0.0-0.8) K/uL Eos # (Auto) (0.0-0.7) K/uL Baso # (Auto) (0.0-0.1) K/uL Nucleated RBC % /100WBC Nucleated RBCs # K/uL Sodium (136-148) mmol/L Potassium (3.5-5.1) mmol/L Chloride (98-107) mmol/L Carbon Dioxide (21.0-32.0) mmol/L BUN (7.0-18.0) mg/dL Creatinine (0.8-1.3) mg/dL Est Cr Clr Drug Dosing mL/min Estimated GFR (MDRD) ml/min Glucose (74-106) mg/dL POC Glucose 182 H 129 H (70-99) mg/dL Hemoglobin A1c (4.5 - 6.2) % Calcium (8.5-10.1) mg/dL Magnesium (1.8-2.4) mg/dL Total Bilirubin (0.2-1.0) mg/dL AST (15-37) IU/L ALT (14-63) IU/L Alkaline Phosphatase (46-116) U/L Total Protein (6.4-8.2) g/dL Albumin (3.4-5.0) g/dL Globulin (2.6-4.0) g/dL Albumin/Globulin Ratio (0.9-1.6) Triglycerides (0-200) mg/dL Cholesterol (50-200) mg/dL LDL Cholesterol, Calc (60-180) mg/dL VLDL Cholesterol (5-55) mg/dL HDL Cholesterol (40-60) mg/dL Cholesterol/HDL Ratio (3.3-6.0) TSH, Ultra Sensitive (0.36-3.74) uIU/mL Urine Color Urine Appearance Urine pH (5.0-8.0) Ur Specific [place] (1.001-1.035) Urine Protein (NEGATIVE) mg/dL Urine Glucose (UA) (NEGATIVE) mg/dL Urine Ketones (NEGATIVE) mg/dL Urine Occult Blood (NEGATIVE) Urine Nitrite (NEGATIVE) Urine Bilirubin (NEGATIVE) Urine Urobilinogen (<2.0) EU/dL Ur Leukocyte Esterase (NEGATIVE) Urine RBC (0-2/HPF) Urine WBC (0-5/HPF) Ur Epithelial Cells (NONE-FEW) Urine Bacteria (NEGATIVE) Urine Opiates Screen (NEGATIVE) Ur Oxycodone Screen (NEGATIVE) Urine Methadone Screen (NEGATIVE) Ur Barbiturates Screen (NEGATIVE) Ur Phencyclidine Scrn (NEGATIVE) Ur Amphetamine Screen (NEGATIVE) U Methamphetamines Scrn (NEGATIVE) U Benzodiazepines Scrn (NEGATIVE) U Cocaine Metab Screen (NEGATIVE) U Marijuana (THC) Screen (NEGATIVE) [place] Results Last 24 Hours: Microbiology 03/08/21 13:37 Aerobic Blood Culture - Preliminary Blood - Venous - Lab Draw NO GROWTH AFTER 1 DAY Anaerobic Blood Culture - Preliminary NO GROWTH AFTER 1 DAY 03/08/21 13:37 Aerobic Blood Culture - Preliminary Blood - Venous NO GROWTH AFTER 1 DAY Anaerobic Blood Culture - Preliminary NO GROWTH AFTER 1 DAY Med Orders - Current: Current Medications Acetaminophen (Acetaminophen 325 Mg Tab) 650 mg PO Q4H PRN PRN Reason: Pain (Mild 1-3)/fever Albuterol/Ipratropium (Albuterol/Ipratropium 3.0-0.5 Mg/3 Ml Neb Soln) 3 ml NEB Q4HRRT PRN PRN Reason: Shortness Of Breath/wheezing Aspirin (Aspirin 81 Mg Tab.Ec) 81 mg PO DAILY [facility] Last Admin: 03/09/21 08:37 Dose: 81 mg Documented by: Atorvastatin Calcium (Atorvastatin 40 Mg Tab) 80 mg PO BEDTIME [facility] Last Admin: 03/08/21 22:11 Dose: 80 mg Documented by: Diazepam (Diazepam 5 Mg Tab) 10 mg PO BID [facility] Last Admin: 03/09/21 14:05 Dose: 10 mg Documented by: Docusate Sodium (Docusate Sodium 100 Mg Cap) 100 mg PO BID PRN PRN Reason: Constipation Folic Acid (Folic Acid 1 Mg Tab) 1 mg PO BEDTIME [facility] Last Admin: 03/08/21 22:11 Dose: 1 mg Documented by: Ceftriaxone Sodium/Dextrose 1 (gm/ Premix) 50 mls @ 100 mls/hr IV Q24H [facility] Last Admin: 03/09/21 11:18 Dose: 100 mls/hr Documented by: Vancomycin HCl (Vancomycin 1.5 Gm/300 Ml) 300 mls @ 200 mls/hr IV Q12H [facility] Last Admin: 03/09/21 16:16 Dose: 200 mls/hr Documented by: Lorazepam (Lorazepam 2 Mg/Ml Sdv) 0 mg IVPUSH Q2H PRN; Protocol PRN Reason: CIWA Last Admin: 03/09/21 05:05 Dose: 1 mg Documented by: Ondansetron HCl (Ondansetron 4 Mg/2 Ml Sdv) 4 mg IVPUSH Q4H PRN PRN Reason: Nausea Pantoprazole Sodium (Pantoprazole 40 Mg Tab.Cr) 40 mg PO ACBREAKFAST [facility] Last Admin: 03/09/21 06:32 Dose: 40 mg Documented by: Sertraline HCl (Sertraline 50 Mg Tab) 50 mg PO DAILY [facility] Last Admin: 03/09/21 08:37 Dose: 50 mg Documented by: Sodium Chloride (Sodium Chloride 0.9% 2.5 Ml Syringe) 2.5 ml FLUSH ASDIRECTED PRN PRN Reason: Keep Vein Open Thiamine HCl (Thiamine 100 Mg Tab) 100 mg PO BEDTIME [facility] Last Admin: 03/08/21 22:11 Dose: 100 mg Documented by: Trazodone HCl (Trazodone 50 Mg Tab) 50 mg PO BEDTIME PRN PRN Reason: Sleep Vancomycin HCl (Pharmacy To Dose - Vancomycin) 1 dose .XX ASDIRECTED [facility] Discontinued Medications Gadobenate Dimeglumine (Gadobenate Dimeglumine 529 Mg/Ml 20 Ml Sdv) 20 ml IVPUSH ONETIME STA Stop: 03/09/21 07:27 Last Admin: 03/09/21 07:49 Dose: 20 ml Documented by: Ceftriaxone Sodium/Dextrose 1 (gm/ Premix) 50 mls @ 100 mls/hr IV ONETIME ONE Stop: 03/08/21 13:43 Last Admin: 03/08/21 15:17 Dose: 100 mls/hr Documented by: Pantoprazole Sodium 40 mg/ (Sodium Chloride) 10 mls @ 300 mls/hr IV NOW ONE Stop: 03/08/21 16:05 Last Admin: 03/08/21 16:43 Dose: 300 mls/hr Documented by: Iopamidol (Iopamidol 755 Mg/Ml 500 Ml Multipack Bottle) 100 ml IVPUSH ONETIME STA Stop: 03/08/21 17:05 Last Admin: 03/08/21 17:04 Dose: 100 ml Documented by: Sodium Chloride (Sodium Chloride 0.9% 10 Ml Syringe) 10 ml FLUSH ASDIRECTED PRN PRN Reason: Keep Vein Open Last Admin: 03/08/21 15:27 Dose: 10 ml Documented by: Sodium Chloride (Sodium Chloride 0.9% 2.5 Ml Syringe) 2.5 ml FLUSH ASDIRECTED PRN PRN Reason: Keep Vein Open Last Admin: 03/08/21 15:27 Dose: 2.5 ml Documented by: - Exam General: Alert, Oriented, Other HEENT: Pupils Equal. No: Scleral Icterus Neck: Supple, No JVD Lungs: Decreased Breath Sounds Cardiovascular: Regular Rate, Regular Rhythm GI/Abdominal Exam: Normal Bowel Sounds Back Exam: Normal Inspection Extremities: Other (R calf erythema within marked border regressing. No discharge.) Peripheral Pulses: 2+: Dorsalis Pedis (L), Dorsalis Pedis (R) Skin: Ecchymosis Wound/Incisions: No Drainage, Erythema. No: Drainage Neurological: Other (B/l upper ext tremors) Psy/Mental Status: Alert, Normal Affect, Anxious, Withdrawal Symptoms. No: Depressed - Patient Data Lab Results Last 24 hrs: Laboratory Results - last 24 hr 03/08/21 03/08/21 03/09/21 Range/Units 18:30 18:30 05:05 WBC 6.76 (4.0-11.0) K/uL RBC 4.55 (4.50-5.90) M/uL Hgb 15.5 (13.0-17.0) g/dL Hct 43.9 (38.0-50.0) % MCV 96.5 (80.0-98.0) fL MCH 34.1 H (27.0-32.0) pg MCHC 35.3 (31.0-37.0) g/dL RDW Std Deviation 45.5 (28.0-62.0) fl RDW Coeff of Stu 13 (11.0-15.0) % Plt Count 203 (150-400) K/uL MPV 9.80 (7.40-12.00) fL Neut % (Auto) 49.8 (48.0-80.0) % Lymph % (Auto) 28.8 (16.0-40.0) % [place] % (Auto) 14.2 (0.0-15.0) % Eos % (Auto) 6.8 (0.0-7.0) % Baso % (Auto) 0.4 (0.0-1.5) % Neut # (Auto) 3.4 (1.4-5.7) K/uL Lymph # (Auto) 2.0 (0.6-2.4) K/uL [place] # (Auto) 1.0 H (0.0-0.8) K/uL Eos # (Auto) 0.5 (0.0-0.7) K/uL Baso # (Auto) 0.0 (0.0-0.1) K/uL Nucleated RBC % 0.0 /100WBC Nucleated RBCs # 0 K/uL Sodium (136-148) mmol/L Potassium (3.5-5.1) mmol/L Chloride (98-107) mmol/L Carbon Dioxide (21.0-32.0) mmol/L BUN (7.0-18.0) mg/dL Creatinine (0.8-1.3) mg/dL Est Cr Clr Drug Dosing mL/min Estimated GFR (MDRD) ml/min Glucose (74-106) mg/dL POC Glucose (70-99) mg/dL Hemoglobin A1c (4.5 - 6.2) % Calcium (8.5-10.1) mg/dL Magnesium (1.8-2.4) mg/dL Total Bilirubin (0.2-1.0) mg/dL AST (15-37) IU/L ALT (14-63) IU/L Alkaline Phosphatase (46-116) U/L Total Protein (6.4-8.2) g/dL Albumin (3.4-5.0) g/dL Globulin (2.6-4.0) g/dL Albumin/Globulin Ratio (0.9-1.6) Triglycerides (0-200) mg/dL Cholesterol (50-200) mg/dL LDL Cholesterol, Calc (60-180) mg/dL VLDL Cholesterol (5-55) mg/dL HDL Cholesterol (40-60) mg/dL Cholesterol/HDL Ratio (3.3-6.0) TSH, Ultra Sensitive (0.36-3.74) uIU/mL Urine Color YELLOW Urine Appearance CLEAR Urine pH 5.5 (5.0-8.0) Ur Specific [place] 1.020 (1.001-1.035) Urine Protein NEGATIVE (NEGATIVE) mg/dL Urine Glucose (UA) NEGATIVE (NEGATIVE) mg/dL Urine Ketones 15 H (NEGATIVE) mg/dL Urine Occult Blood TRACE-INTACT H (NEGATIVE) Urine Nitrite NEGATIVE (NEGATIVE) Urine Bilirubin NEGATIVE (NEGATIVE) Urine Urobilinogen 1.0 (<2.0) EU/dL Ur Leukocyte Esterase NEGATIVE (NEGATIVE) Urine RBC 1-3 (0-2/HPF) Urine WBC 0-1 (0-5/HPF) Ur Epithelial Cells RARE (NONE-FEW) Urine Bacteria RARE (NEGATIVE) Urine Opiates Screen NEGATIVE (NEGATIVE) Ur Oxycodone Screen NEGATIVE (NEGATIVE) Urine Methadone Screen NEGATIVE (NEGATIVE) Ur Barbiturates Screen NEGATIVE (NEGATIVE) Ur Phencyclidine Scrn NEGATIVE (NEGATIVE) Ur Amphetamine Screen NEGATIVE (NEGATIVE) U Methamphetamines Scrn NEGATIVE (NEGATIVE) U Benzodiazepines Scrn NEGATIVE (NEGATIVE) U Cocaine Metab Screen NEGATIVE (NEGATIVE) U Marijuana (THC) Screen NEGATIVE (NEGATIVE) 03/09/21 03/09/21 03/09/21 Range/Units 05:05 05:05 06:29 WBC (4.0-11.0) K/uL RBC (4.50-5.90) M/uL Hgb (13.0-17.0) g/dL Hct (38.0-50.0) % MCV (80.0-98.0) fL MCH (27.0-32.0) pg MCHC (31.0-37.0) g/dL RDW Std Deviation (28.0-62.0) fl RDW Coeff of Stu (11.0-15.0) % Plt Count (150-400) K/uL MPV (7.40-12.00) fL Neut % (Auto) (48.0-80.0) % Lymph % (Auto) (16.0-40.0) % [place] % (Auto) (0.0-15.0) % Eos % (Auto) (0.0-7.0) % Baso % (Auto) (0.0-1.5) % Neut # (Auto) (1.4-5.7) K/uL Lymph # (Auto) (0.6-2.4) K/uL [place] # (Auto) (0.0-0.8) K/uL Eos # (Auto) (0.0-0.7) K/uL Baso # (Auto) (0.0-0.1) K/uL Nucleated RBC % /100WBC Nucleated RBCs # K/uL Sodium 135 L (136-148) mmol/L Potassium 4.1 (3.5-5.1) mmol/L Chloride 98 (98-107) mmol/L Carbon Dioxide 28.5 (21.0-32.0) mmol/L BUN 13 (7.0-18.0) mg/dL Creatinine 0.8 (0.8-1.3) mg/dL Est Cr Clr Drug Dosing 118.45 mL/min Estimated GFR (MDRD) > 60.0 ml/min Glucose 124 H (74-106) mg/dL POC Glucose 131 H (70-99) mg/dL Hemoglobin A1c 5.6 (4.5 - 6.2) % Calcium 8.1 L (8.5-10.1) mg/dL Magnesium 1.7 L (1.8-2.4) mg/dL Total Bilirubin 1.3 H (0.2-1.0) mg/dL AST 53 H (15-37) IU/L ALT 91 H (14-63) IU/L Alkaline Phosphatase 65 (46-116) U/L Total Protein 6.4 (6.4-8.2) g/dL Albumin 3.5 (3.4-5.0) g/dL Globulin 2.9 (2.6-4.0) g/dL Albumin/Globulin Ratio 1.2 (0.9-1.6) Triglycerides 86 (0-200) mg/dL Cholesterol 133 (50-200) mg/dL LDL Cholesterol, Calc 60 (60-180) mg/dL VLDL Cholesterol 17 (5-55) mg/dL HDL Cholesterol 56 (40-60) mg/dL Cholesterol/HDL Ratio 2.4 L (3.3-6.0) TSH, Ultra Sensitive 2.37 (0.36-3.74) uIU/mL Urine Color Urine Appearance Urine pH (5.0-8.0) Ur Specific [place] (1.001-1.035) Urine Protein (NEGATIVE) mg/dL Urine Glucose (UA) (NEGATIVE) mg/dL Urine Ketones (NEGATIVE) mg/dL Urine Occult Blood (NEGATIVE) Urine Nitrite (NEGATIVE) Urine Bilirubin (NEGATIVE) Urine Urobilinogen (<2.0) EU/dL Ur Leukocyte Esterase (NEGATIVE) Urine RBC (0-2/HPF) Urine WBC (0-5/HPF) Ur Epithelial Cells (NONE-FEW) Urine Bacteria (NEGATIVE) Urine Opiates Screen (NEGATIVE) Ur Oxycodone Screen (NEGATIVE) Urine Methadone Screen (NEGATIVE) Ur Barbiturates Screen (NEGATIVE) Ur Phencyclidine Scrn (NEGATIVE) Ur Amphetamine Screen (NEGATIVE) U Methamphetamines Scrn (NEGATIVE) U Benzodiazepines Scrn (NEGATIVE) U Cocaine Metab Screen (NEGATIVE) U Marijuana (THC) Screen (NEGATIVE) 03/09/21 03/09/21 Range/Units 11:45 16:43 WBC (4.0-11.0) K/uL RBC (4.50-5.90) M/uL Hgb (13.0-17.0) g/dL Hct (38.0-50.0) % MCV (80.0-98.0) fL MCH (27.0-32.0) pg MCHC (31.0-37.0) g/dL RDW Std Deviation (28.0-62.0) fl RDW Coeff of Stu (11.0-15.0) % Plt Count (150-400) K/uL MPV (7.40-12.00) fL Neut % (Auto) (48.0-80.0) % Lymph % (Auto) (16.0-40.0) % [place] % (Auto) (0.0-15.0) % Eos % (Auto) (0.0-7.0) % Baso % (Auto) (0.0-1.5) % Neut # (Auto) (1.4-5.7) K/uL Lymph # (Auto) (0.6-2.4) K/uL [place] # (Auto) (0.0-0.8) K/uL Eos # (Auto) (0.0-0.7) K/uL Baso # (Auto) (0.0-0.1) K/uL Nucleated RBC % /100WBC Nucleated RBCs # K/uL Sodium (136-148) mmol/L Potassium (3.5-5.1) mmol/L Chloride (98-107) mmol/L Carbon Dioxide (21.0-32.0) mmol/L BUN (7.0-18.0) mg/dL Creatinine (0.8-1.3) mg/dL Est Cr Clr Drug Dosing mL/min Estimated GFR (MDRD) ml/min Glucose (74-106) mg/dL POC Glucose 182 H 129 H (70-99) mg/dL Hemoglobin A1c (4.5 - 6.2) % Calcium (8.5-10.1) mg/dL Magnesium (1.8-2.4) mg/dL Total Bilirubin (0.2-1.0) mg/dL AST (15-37) IU/L ALT (14-63) IU/L Alkaline Phosphatase (46-116) U/L Total Protein (6.4-8.2) g/dL Albumin (3.4-5.0) g/dL Globulin (2.6-4.0) g/dL Albumin/Globulin Ratio (0.9-1.6) Triglycerides (0-200) mg/dL Cholesterol (50-200) mg/dL LDL Cholesterol, Calc (60-180) mg/dL VLDL Cholesterol (5-55) mg/dL HDL Cholesterol (40-60) mg/dL Cholesterol/HDL Ratio (3.3-6.0) TSH, Ultra Sensitive (0.36-3.74) uIU/mL Urine Color Urine Appearance Urine pH (5.0-8.0) Ur Specific [place] (1.001-1.035) Urine Protein (NEGATIVE) mg/dL Urine Glucose (UA) (NEGATIVE) mg/dL Urine Ketones (NEGATIVE) mg/dL Urine Occult Blood (NEGATIVE) Urine Nitrite (NEGATIVE) Urine Bilirubin (NEGATIVE) Urine Urobilinogen (<2.0) EU/dL Ur Leukocyte Esterase (NEGATIVE) Urine RBC (0-2/HPF) Urine WBC (0-5/HPF) Ur Epithelial Cells (NONE-FEW) Urine Bacteria (NEGATIVE) Urine Opiates Screen (NEGATIVE) Ur Oxycodone Screen (NEGATIVE) Urine Methadone Screen (NEGATIVE) Ur Barbiturates Screen (NEGATIVE) Ur Phencyclidine Scrn (NEGATIVE) Ur Amphetamine Screen (NEGATIVE) U Methamphetamines Scrn (NEGATIVE) U Benzodiazepines Scrn (NEGATIVE) U Cocaine Metab Screen (NEGATIVE) U Marijuana (THC) Screen (NEGATIVE) Result Diagrams: 03/09/21 05:05 03/09/21 05:05 Gas[place] Results Last 24 hrs: Microbiology 03/08/21 13:37 Aerobic Blood Culture - Preliminary Blood - Venous - Lab Draw NO GROWTH AFTER 1 DAY Anaerobic Blood Culture - Preliminary NO GROWTH AFTER 1 DAY 03/08/21 13:37 Aerobic Blood Culture - Preliminary Blood - Venous NO GROWTH AFTER 1 DAY Anaerobic Blood Culture - Preliminary NO GROWTH AFTER 1 DAY Sepsis Event Note - Evaluation Sepsis Screening Result: No Definite Risk - Focused Exam Vital Signs: Vital Signs Temp Pulse Resp BP Pulse Ox 03/09/21 16:11 98.2 F 67 20 158/73 H 97 03/09/21 11:37 96.1 F L 76 20 144/89 H 91 L 03/09/21 09:00 96.2 F L 75 22 H 137/74 96 - Problem List Review Problem List Initiated/Reviewed/Updated: Yes - My Orders Last 24 Hours: My Active Orders 03/09/21 14:00 [id number] [Valium.] 10 mg PO BID - Plan Plan:: This 55-year-old male admitted for TIA and cellulitis of R calf. TIA symptoms have resolved. Back to baseline neurologic status. MRI today shows no acute infarct. Lipid panel wnl. Hemoglobin A1C 5.6. Vitamin B12 809. TSH 2.37. Urine tox negative. Physical therapy will see patient today. Patient had echocardiogram this morning, will follow up with results. Continue aspirin and atorvastatin. Continue holding lisinopril. Patient is on day 2 of vancomycin and ceftriaxone. WBC count down to 6.7. Follow-up blood cultures and wound cultures. Patient received 4 mg of Ativan in the last 24 hours. Last CIWA score was 8. We will start diazepam 10 mg twice daily for baseline control as patient has tremors and anxiety. Thiamine and folic acid supplementation. Patient is currently unwilling to seek help with alcohol abuse. Sliding scale, ADA diet. Hemoglobin A1c 5.6. Hold Metformin. Duo nebs. Albuterol inhaler. SCDs. Physical therapy. Protonix.
[2021-03-09] MEDS: atorvaSTATin 40 MG Tab PO SCH (20:08)
[2021-03-09] MEDS: Folic Acid 1 MG Tab PO SCH (20:09)
[2021-03-09] MEDS: Thiamine 100 MG Tab PO SCH (20:09)
[2021-03-10] MEDS: Acetaminophen 325 MG Tab PO PRN (04:51)
[2021-03-10] MEDS: VANCOmycin 1.5 GM/300 ML 300 ML IV SCH (05:07)
[2021-03-10] MEDS: VANCOmycin 1.75 GM/350 ML 1.75 GM in Premix Bag 1 BAG IV SCH ×2 (05:40→16:51)
[2021-03-10] MEDS: Pantoprazole 40 MG Tab.CR PO SCH (07:21)
[2021-03-10] MEDS: Aspirin 81 MG Tab.EC PO SCH (08:23)
[2021-03-10] MEDS: Sertraline 50 MG Tab PO SCH (08:23)
[2021-03-10] MEDS: Diazepam 5 MG Tab PO SCH (08:23)
[2021-03-10] MEDS: cefTRIAXone 1 GM in Premix Bag 1 BAG IV SCH (12:37)
--- NOTE | 2021-03-10 15:32 | PCM.PN ---
- General Info Date of Service: 03/10/21 - Review of Systems Systems Review Comment:: shakes has improved, redness of calf improved - Patient Data Vitals - Most Recent: Last Vital Signs Temp 36.3 C 03/10/21 12:00 Pulse 72 03/10/21 12:00 Resp 16 03/10/21 12:00 BP 152/95 H 03/10/21 12:00 Pulse Ox 96 03/10/21 12:00 Weight - Most Recent: 126.189 kg I&O - Last 24 Hours: Intake & Output 03/10/21 03/10/21 03/10/21 06:59 14:59 22:59 Intake Total 1868 Output Total 0 Balance 1868 Lab Results Last 24 Hours: Laboratory Results - last 24 hr 03/09/21 03/10/21 03/10/21 Range/Units 16:43 04:30 07:20 POC Glucose 129 H 129 H (70-99) mg/dL Vancomycin Trough 9.6 (5.0-10.0) ug/mL [place] Results Last 24 Hours: Microbiology 03/08/21 13:37 Aerobic Blood Culture - Preliminary Blood - Venous - Lab Draw NO GROWTH AFTER 2 DAYS Anaerobic Blood Culture - Preliminary NO GROWTH AFTER 2 DAYS 03/08/21 13:37 Aerobic Blood Culture - Preliminary Blood - Venous NO GROWTH AFTER 2 DAYS Anaerobic Blood Culture - Preliminary NO GROWTH AFTER 2 DAYS 03/08/21 21:45 Gram Stain - Final Wound Med Orders - Current: Current Medications Acetaminophen (Acetaminophen 325 Mg Tab) 650 mg PO Q4H PRN PRN Reason: Pain (Mild 1-3)/fever Last Admin: 03/10/21 04:51 Dose: 650 mg Documented by: Albuterol/Ipratropium (Albuterol/Ipratropium 3.0-0.5 Mg/3 Ml Neb Soln) 3 ml NEB Q4HRRT PRN PRN Reason: Shortness Of Breath/wheezing Aspirin (Aspirin 81 Mg Tab.Ec) 81 mg PO DAILY [facility] Last Admin: 03/10/21 08:23 Dose: 81 mg Documented by: Atorvastatin Calcium (Atorvastatin 40 Mg Tab) 80 mg PO BEDTIME ONEAL Last Admin: 03/09/21 20:08 Dose: 80 mg Documented by: Docusate Sodium (Docusate Sodium 100 Mg Cap) 100 mg PO BID PRN PRN Reason: Constipation Folic Acid (Folic Acid 1 Mg Tab) 1 mg PO BEDTIME [facility] Last Admin: 03/09/21 20:09 Dose: 1 mg Documented by: Ceftriaxone Sodium/Dextrose 1 (gm/ Premix) 50 mls @ 100 mls/hr IV Q24H [facility] Last Admin: 03/10/21 12:37 Dose: 100 mls/hr Documented by: Vancomycin HCl 1.75 gm/ Premix 350 mls @ 200 mls/hr IV Q12H [facility] Last Admin: 03/10/21 05:40 Dose: 200 mls/hr Documented by: Lorazepam (Lorazepam 2 Mg/Ml Sdv) 0 mg IVPUSH Q2H PRN; Protocol PRN Reason: CIWA Last Admin: 03/09/21 05:05 Dose: 1 mg Documented by: Ondansetron HCl (Ondansetron 4 Mg/2 Ml Sdv) 4 mg IVPUSH Q4H PRN PRN Reason: Nausea Pantoprazole Sodium (Pantoprazole 40 Mg Tab.Cr) 40 mg PO ACBREAKFAST [facility] Last Admin: 03/10/21 07:21 Dose: 40 mg Documented by: Sertraline HCl (Sertraline 50 Mg Tab) 50 mg PO DAILY [facility] Last Admin: 03/10/21 08:23 Dose: 50 mg Documented by: Sodium Chloride (Sodium Chloride 0.9% 2.5 Ml Syringe) 2.5 ml FLUSH ASDIRECTED PRN PRN Reason: Keep Vein Open Thiamine HCl (Thiamine 100 Mg Tab) 100 mg PO BEDTIME [facility] Last Admin: 03/09/21 20:09 Dose: 100 mg Documented by: Trazodone HCl (Trazodone 50 Mg Tab) 50 mg PO BEDTIME PRN PRN Reason: Sleep Vancomycin HCl (Pharmacy To Dose - Vancomycin) 1 dose .XX ASDIRECTED [facility] Discontinued Medications Diazepam (Diazepam 5 Mg Tab) 10 mg PO BID [facility] Last Admin: 03/10/21 08:23 Dose: 10 mg Documented by: Gadobenate Dimeglumine (Gadobenate Dimeglumine 529 Mg/Ml 20 Ml Sdv) 20 ml IVPUSH ONETIME STA Stop: 03/09/21 07:27 Last Admin: 03/09/21 07:49 Dose: 20 ml Documented by: Ceftriaxone Sodium/Dextrose 1 (gm/ Premix) 50 mls @ 100 mls/hr IV ONETIME ONE Stop: 03/08/21 13:43 Last Admin: 03/08/21 15:17 Dose: 100 mls/hr Documented by: Pantoprazole Sodium 40 mg/ (Sodium Chloride) 10 mls @ 300 mls/hr IV NOW ONE Stop: 03/08/21 16:05 Last Admin: 03/08/21 16:43 Dose: 300 mls/hr Documented by: Vancomycin HCl (Vancomycin 1.5 Gm/300 Ml) 300 mls @ 200 mls/hr IV Q12H [facility] Last Admin: 03/10/21 05:07 Dose: Not Given Documented by: Iopamidol (Iopamidol 755 Mg/Ml 500 Ml Multipack Bottle) 100 ml IVPUSH ONETIME STA Stop: 03/08/21 17:05 Last Admin: 03/08/21 17:04 Dose: 100 ml Documented by: Sodium Chloride (Sodium Chloride 0.9% 10 Ml Syringe) 10 ml FLUSH ASDIRECTED PRN PRN Reason: Keep Vein Open Last Admin: 03/08/21 15:27 Dose: 10 ml Documented by: Sodium Chloride (Sodium Chloride 0.9% 2.5 Ml Syringe) 2.5 ml FLUSH ASDIRECTED PRN PRN Reason: Keep Vein Open Last Admin: 03/08/21 15:27 Dose: 2.5 ml Documented by: - Exam General: Alert, Oriented Neck: Supple Lungs: Clear to Auscultation, Normal Respiratory Effort Cardiovascular: Regular Rate, Regular Rhythm GI/Abdominal Exam: Soft, Non-Tender, No Distention Extremities: Non-Tender, No Pedal Edema, Other (erythema of left posterior calf oveer tatoo) Skin: Warm, Dry, Intact Neurological: No New Focal Deficit - Patient Data Lab Results Last 24 hrs: Laboratory Results - last 24 hr 03/09/21 03/10/21 03/10/21 Range/Units 16:43 04:30 07:20 POC Glucose 129 H 129 H (70-99) mg/dL Vancomycin Trough 9.6 (5.0-10.0) ug/mL Result Diagrams: 03/09/21 05:05 03/09/21 05:05 [place] Results Last 24 hrs: Microbiology 03/08/21 13:37 Aerobic Blood Culture - Preliminary Blood - Venous - Lab Draw NO GROWTH AFTER 2 DAYS Anaerobic Blood Culture - Preliminary NO GROWTH AFTER 2 DAYS 03/08/21 13:37 Aerobic Blood Culture - Preliminary Blood - Venous NO GROWTH AFTER 2 DAYS Anaerobic Blood Culture - Preliminary NO GROWTH AFTER 2 DAYS 03/08/21 21:45 Gram Stain - Final Wound Sepsis Event Note - Evaluation Sepsis Screening Result: No Definite Risk - Focused Exam Vital Signs: Vital Signs Temp Pulse Resp BP Pulse Ox 03/10/21 12:00 36.3 C 72 16 152/95 H 96 03/10/21 08:00 36.4 C 76 18 133/96 H 96 03/10/21 04:41 36.4 C 76 16 143/90 H 96 - Problem List Review Problem List Initiated/Reviewed/Updated: Yes - My Orders Last 24 Hours: My Active Orders 03/10/21 15:20 Admission Status [Patient Status] [ADT] Routine 03/11/21 05:11 BASIC METABOLIC PANEL,BMP [CHEM] AM CBC WITH AUTO DIFF [HEME] AM - Plan Plan:: This 55-year-old male admitted for TIA and cellulitis of R calf. TIA: Back to baseline neurologic status. MRI shows no acute infarct. Continue aspirin and atorvastatin. Cellulitis: continue Vancomycin and ceftriaxone. ETOH detox: continue CIWAA protocol with prn ativan. Thiamin and folic acid. Sliding scale, ADA diet. Hemoglobin A1c 5.6. Hold Metformin. Duo nebs. Albuterol inhaler. SCDs. Physical therapy. Protonix.
[2021-03-10] MEDS: atorvaSTATin 40 MG Tab PO SCH (21:03)
[2021-03-10] MEDS: Thiamine 100 MG Tab PO SCH (21:04)
[2021-03-10] MEDS: Folic Acid 1 MG Tab PO SCH (21:04)
[2021-03-10] MEDS: traZODone 50 MG Tab PO PRN (21:13)
[2021-03-11] MEDS: VANCOmycin 1.75 GM/350 ML 1.75 GM in Premix Bag 1 BAG IV SCH ×2 (04:55→17:31)
[2021-03-11] MEDS: Pantoprazole 40 MG Tab.CR PO SCH (06:44)
[2021-03-11 08:01] LABS: BLOOD UREA NITROGEN,BUN 11 mg/dL (7.0-18.0); CARBON DIOXIDE,CO2 25.7 mmol/L (21.0-32.0); CHLORIDE,CL 102 mmol/L (98-107); GLUCOSE RANDOM 113 mg/dL (74-106); POTASSIUM,K 4.1 mmol/L (3.5-5.1); SODIUM,NA 137 mmol/L (136-148)
[2021-03-11] MEDS: Aspirin 81 MG Tab.EC PO SCH (08:21)
[2021-03-11] MEDS: Sertraline 50 MG Tab PO SCH (08:21)
[2021-03-11] MEDS: cefTRIAXone 1 GM in Premix Bag 1 BAG IV SCH (11:10)
--- NOTE | 2021-03-11 14:01 | PCM.PN ---
- General Info Date of Service: 03/11/21 - Review of Systems Systems Review Comment:: feeling better, no tremors - Patient Data Vitals - Most Recent: Last Vital Signs Temp 36.3 C 03/11/21 12:20 Pulse 97 03/11/21 12:20 Resp 17 03/11/21 12:20 BP 143/97 H 03/11/21 12:20 Pulse Ox 97 03/11/21 12:20 Weight - Most Recent: 126.189 kg I&O - Last 24 Hours: Intake & Output 03/10/21 03/11/21 03/11/21 22:59 06:59 14:59 Intake Total 1320 1728 Output Total 0 Balance 1320 1728 Lab Results Last 24 Hours: Laboratory Results - last 24 hr 03/10/21 03/11/21 03/11/21 Range/Units 17:59 06:40 06:40 WBC 5.59 (4.0-11.0) K/uL RBC 4.50 (4.50-5.90) M/uL Hgb 15.2 (13.0-17.0) g/dL Hct 43.4 (38.0-50.0) % MCV 96.4 (80.0-98.0) fL MCH 33.8 H (27.0-32.0) pg MCHC 35.0 (31.0-37.0) g/dL RDW Std Deviation 45.3 (28.0-62.0) fl RDW Coeff of Stu 13 (11.0-15.0) % Plt Count 184 (150-400) K/uL MPV 9.90 (7.40-12.00) fL Neut % (Auto) 55.9 (48.0-80.0) % Lymph % (Auto) 25.4 (16.0-40.0) % Mcdonald % (Auto) 11.1 (0.0-15.0) % Eos % (Auto) 7.2 H (0.0-7.0) % Baso % (Auto) 0.4 (0.0-1.5) % Neut # (Auto) 3.1 (1.4-5.7) K/uL Lymph # (Auto) 1.4 (0.6-2.4) K/uL Mcdonald # (Auto) 0.6 (0.0-0.8) K/uL Eos # (Auto) 0.4 (0.0-0.7) K/uL Baso # (Auto) 0.0 (0.0-0.1) K/uL Nucleated RBC % 0.0 /100WBC Nucleated RBCs # 0 K/uL Sodium 137 (136-148) mmol/L Potassium 4.1 (3.5-5.1) mmol/L Chloride 102 (98-107) mmol/L Carbon Dioxide 25.7 (21.0-32.0) mmol/L BUN 11 (7.0-18.0) mg/dL Creatinine 0.9 (0.8-1.3) mg/dL Est Cr Clr Drug Dosing 105.29 mL/min Estimated GFR (MDRD) > 60.0 ml/min Glucose 113 H (74-106) mg/dL POC Glucose 157 H (70-99) mg/dL Calcium 8.1 L (8.5-10.1) mg/dL 03/11/21 03/11/21 03/11/21 Range/Units 06:43 08:19 12:17 WBC (4.0-11.0) K/uL RBC (4.50-5.90) M/uL Hgb (13.0-17.0) g/dL Hct (38.0-50.0) % MCV (80.0-98.0) fL MCH (27.0-32.0) pg MCHC (31.0-37.0) g/dL RDW Std Deviation (28.0-62.0) fl RDW Coeff of Stu (11.0-15.0) % Plt Count (150-400) K/uL MPV (7.40-12.00) fL Neut % (Auto) (48.0-80.0) % Lymph % (Auto) (16.0-40.0) % Mcdonald % (Auto) (0.0-15.0) % Eos % (Auto) (0.0-7.0) % Baso % (Auto) (0.0-1.5) % Neut # (Auto) (1.4-5.7) K/uL Lymph # (Auto) (0.6-2.4) K/uL Mcdonald # (Auto) (0.0-0.8) K/uL Eos # (Auto) (0.0-0.7) K/uL Baso # (Auto) (0.0-0.1) K/uL Nucleated RBC % /100WBC Nucleated RBCs # K/uL Sodium (136-148) mmol/L Potassium (3.5-5.1) mmol/L Chloride (98-107) mmol/L Carbon Dioxide (21.0-32.0) mmol/L BUN (7.0-18.0) mg/dL Creatinine (0.8-1.3) mg/dL Est Cr Clr Drug Dosing mL/min Estimated GFR (MDRD) ml/min Glucose (74-106) mg/dL POC Glucose 115 H 123 H 116 H (70-99) mg/dL Calcium (8.5-10.1) mg/dL [place] Results Last 24 Hours: Microbiology 03/08/21 13:37 Aerobic Blood Culture - Preliminary Blood - Venous - Lab Draw NO GROWTH AFTER 3 DAYS Anaerobic Blood Culture - Preliminary NO GROWTH AFTER 3 DAYS 03/08/21 13:37 Aerobic Blood Culture - Preliminary Blood - Venous NO GROWTH AFTER 3 DAYS Anaerobic Blood Culture - Preliminary NO GROWTH AFTER 3 DAYS 03/08/21 21:45 Miscellaneous Reference Culture - Preliminary Wound Staphylococcus Aureus Gram Stain - Final Med Orders - Current: Current Medications Acetaminophen (Acetaminophen 325 Mg Tab) 650 mg PO Q4H PRN PRN Reason: Pain (Mild 1-3)/fever Last Admin: 03/10/21 04:51 Dose: 650 mg Documented by: Albuterol/Ipratropium (Albuterol/Ipratropium 3.0-0.5 Mg/3 Ml Neb Soln) 3 ml NEB Q4HRRT PRN PRN Reason: Shortness Of Breath/wheezing Aspirin (Aspirin 81 Mg Tab.Ec) 81 mg PO DAILY [facility] Last Admin: 03/11/21 08:21 Dose: 81 mg Documented by: Atorvastatin Calcium (Atorvastatin 40 Mg Tab) 80 mg PO BEDTIME ONEAL Last Admin: 03/10/21 21:03 Dose: 80 mg Documented by: Docusate Sodium (Docusate Sodium 100 Mg Cap) 100 mg PO BID PRN PRN Reason: Constipation Folic Acid (Folic Acid 1 Mg Tab) 1 mg PO BEDTIME [facility] Last Admin: 03/10/21 21:04 Dose: 1 mg Documented by: Ceftriaxone Sodium/Dextrose 1 (gm/ Premix) 50 mls @ 100 mls/hr IV Q24H [facility] Last Admin: 03/11/21 11:10 Dose: 100 mls/hr Documented by: Vancomycin HCl 1.75 gm/ Premix 350 mls @ 200 mls/hr IV Q12H [facility] Last Admin: 03/11/21 04:55 Dose: 200 mls/hr Documented by: Lorazepam (Lorazepam 2 Mg/Ml Sdv) 0 mg IVPUSH Q2H PRN; Protocol PRN Reason: CIWA Last Admin: 03/09/21 05:05 Dose: 1 mg Documented by: Ondansetron HCl (Ondansetron 4 Mg/2 Ml Sdv) 4 mg IVPUSH Q4H PRN PRN Reason: Nausea Pantoprazole Sodium (Pantoprazole 40 Mg Tab.Cr) 40 mg PO ACBREAKFAST [facility] Last Admin: 03/11/21 06:44 Dose: 40 mg Documented by: Sertraline HCl (Sertraline 50 Mg Tab) 50 mg PO DAILY [facility] Last Admin: 03/11/21 08:21 Dose: 50 mg Documented by: Sodium Chloride (Sodium Chloride 0.9% 2.5 Ml Syringe) 2.5 ml FLUSH ASDIRECTED PRN PRN Reason: Keep Vein Open Thiamine HCl (Thiamine 100 Mg Tab) 100 mg PO BEDTIME [facility] Last Admin: 03/10/21 21:04 Dose: 100 mg Documented by: Trazodone HCl (Trazodone 50 Mg Tab) 50 mg PO BEDTIME PRN PRN Reason: Sleep Last Admin: 03/10/21 21:13 Dose: 50 mg Documented by: Vancomycin HCl (Pharmacy To Dose - Vancomycin) 1 dose .XX ASDIRECTED [facility] Discontinued Medications Diazepam (Diazepam 5 Mg Tab) 10 mg PO BID [facility] Last Admin: 03/10/21 08:23 Dose: 10 mg Documented by: Gadobenate Dimeglumine (Gadobenate Dimeglumine 529 Mg/Ml 20 Ml Sdv) 20 ml IVPUSH ONETIME STA Stop: 03/09/21 07:27 Last Admin: 03/09/21 07:49 Dose: 20 ml Documented by: Ceftriaxone Sodium/Dextrose 1 (gm/ Premix) 50 mls @ 100 mls/hr IV ONETIME ONE Stop: 03/08/21 13:43 Last Admin: 03/08/21 15:17 Dose: 100 mls/hr Documented by: Pantoprazole Sodium 40 mg/ (Sodium Chloride) 10 mls @ 300 mls/hr IV NOW ONE Stop: 03/08/21 16:05 Last Admin: 03/08/21 16:43 Dose: 300 mls/hr Documented by: Vancomycin HCl (Vancomycin 1.5 Gm/300 Ml) 300 mls @ 200 mls/hr IV Q12H [facility] Last Admin: 03/10/21 05:07 Dose: Not Given Documented by: Iopamidol (Iopamidol 755 Mg/Ml 500 Ml Multipack Bottle) 100 ml IVPUSH ONETIME STA Stop: 03/08/21 17:05 Last Admin: 03/08/21 17:04 Dose: 100 ml Documented by: Sodium Chloride (Sodium Chloride 0.9% 10 Ml Syringe) 10 ml FLUSH ASDIRECTED PRN PRN Reason: Keep Vein Open Last Admin: 03/08/21 15:27 Dose: 10 ml Documented by: Sodium Chloride (Sodium Chloride 0.9% 2.5 Ml Syringe) 2.5 ml FLUSH ASDIRECTED PRN PRN Reason: Keep Vein Open Last Admin: 03/08/21 15:27 Dose: 2.5 ml Documented by: - Exam General: Alert, Oriented Neck: Supple Lungs: Clear to Auscultation, Normal Respiratory Effort GI/Abdominal Exam: Soft, Non-Tender, No Distention Extremities: Non-Tender, No Pedal Edema Skin: Warm, Dry, Intact Neurological: No New Focal Deficit - Patient Data Lab Results Last 24 hrs: Laboratory Results - last 24 hr 03/10/21 03/11/21 03/11/21 Range/Units 17:59 06:40 06:40 WBC 5.59 (4.0-11.0) K/uL RBC 4.50 (4.50-5.90) M/uL Hgb 15.2 (13.0-17.0) g/dL Hct 43.4 (38.0-50.0) % MCV 96.4 (80.0-98.0) fL MCH 33.8 H (27.0-32.0) pg MCHC 35.0 (31.0-37.0) g/dL RDW Std Deviation 45.3 (28.0-62.0) fl RDW Coeff of Stu 13 (11.0-15.0) % Plt Count 184 (150-400) K/uL MPV 9.90 (7.40-12.00) fL Neut % (Auto) 55.9 (48.0-80.0) % Lymph % (Auto) 25.4 (16.0-40.0) % Mcdonald % (Auto) 11.1 (0.0-15.0) % Eos % (Auto) 7.2 H (0.0-7.0) % Baso % (Auto) 0.4 (0.0-1.5) % Neut # (Auto) 3.1 (1.4-5.7) K/uL Lymph # (Auto) 1.4 (0.6-2.4) K/uL Mcdonald # (Auto) 0.6 (0.0-0.8) K/uL Eos # (Auto) 0.4 (0.0-0.7) K/uL Baso # (Auto) 0.0 (0.0-0.1) K/uL Nucleated RBC % 0.0 /100WBC Nucleated RBCs # 0 K/uL Sodium 137 (136-148) mmol/L Potassium 4.1 (3.5-5.1) mmol/L Chloride 102 (98-107) mmol/L Carbon Dioxide 25.7 (21.0-32.0) mmol/L BUN 11 (7.0-18.0) mg/dL Creatinine 0.9 (0.8-1.3) mg/dL Est Cr Clr Drug Dosing 105.29 mL/min Estimated GFR (MDRD) > 60.0 ml/min Glucose 113 H (74-106) mg/dL POC Glucose 157 H (70-99) mg/dL Calcium 8.1 L (8.5-10.1) mg/dL 03/11/21 03/11/21 03/11/21 Range/Units 06:43 08:19 12:17 WBC (4.0-11.0) K/uL RBC (4.50-5.90) M/uL Hgb (13.0-17.0) g/dL Hct (38.0-50.0) % MCV (80.0-98.0) fL MCH (27.0-32.0) pg MCHC (31.0-37.0) g/dL RDW Std Deviation (28.0-62.0) fl RDW Coeff of Stu (11.0-15.0) % Plt Count (150-400) K/uL MPV (7.40-12.00) fL Neut % (Auto) (48.0-80.0) % Lymph % (Auto) (16.0-40.0) % Mcdonald % (Auto) (0.0-15.0) % Eos % (Auto) (0.0-7.0) % Baso % (Auto) (0.0-1.5) % Neut # (Auto) (1.4-5.7) K/uL Lymph # (Auto) (0.6-2.4) K/uL Mcdonald # (Auto) (0.0-0.8) K/uL Eos # (Auto) (0.0-0.7) K/uL Baso # (Auto) (0.0-0.1) K/uL Nucleated RBC % /100WBC Nucleated RBCs # K/uL Sodium (136-148) mmol/L Potassium (3.5-5.1) mmol/L Chloride (98-107) mmol/L Carbon Dioxide (21.0-32.0) mmol/L BUN (7.0-18.0) mg/dL Creatinine (0.8-1.3) mg/dL Est Cr Clr Drug Dosing mL/min Estimated GFR (MDRD) ml/min Glucose (74-106) mg/dL POC Glucose 115 H 123 H 116 H (70-99) mg/dL Calcium (8.5-10.1) mg/dL Result Diagrams: 03/11/21 06:40 03/11/21 06:40 [place] Results Last 24 hrs: Microbiology 03/08/21 13:37 Aerobic Blood Culture - Preliminary Blood - Venous - Lab Draw NO GROWTH AFTER 3 DAYS Anaerobic Blood Culture - Preliminary NO GROWTH AFTER 3 DAYS 03/08/21 13:37 Aerobic Blood Culture - Preliminary Blood - Venous NO GROWTH AFTER 3 DAYS Anaerobic Blood Culture - Preliminary NO GROWTH AFTER 3 DAYS 03/08/21 21:45 Miscellaneous Reference Culture - Preliminary Wound Staphylococcus Aureus Gram Stain - Final Sepsis Event Note - Evaluation Sepsis Screening Result: No Definite Risk - Focused Exam Vital Signs: Vital Signs Temp Pulse Resp BP Pulse Ox 03/11/21 12:20 36.3 C 97 17 143/97 H 97 03/11/21 08:00 36.3 C 76 16 139/89 96 03/11/21 04:49 36.8 C 67 16 136/89 97 - Problem List Review Problem List Initiated/Reviewed/Updated: Yes - My Orders Last 24 Hours: My Active Orders 03/10/21 15:20 Admission Status [Patient Status] [ADT] Routine - Plan Plan:: This 55-year-old male admitted for TIA and cellulitis of R calf. TIA: Back to baseline neurologic status. MRI shows no acute infarct. Continue aspirin and atorvastatin. Cellulitis: continue Vancomycin and ceftriaxone. ETOH detox: continue CIWAA protocol with prn ativan. last dose of valium was yesterday. Thiamin and folic acid. Sliding scale, ADA diet. Hemoglobin A1c 5.6. Hold Metformin. Duo nebs. Albuterol inhaler. SCDs. Physical therapy. Protonix. Dispo: likely home tomorrow.
[2021-03-11] MEDS: Acetaminophen 325 MG Tab PO PRN (17:40)
[2021-03-11] MEDS: atorvaSTATin 40 MG Tab PO SCH (20:01)
[2021-03-11] MEDS: traZODone 50 MG Tab PO PRN (20:01)
[2021-03-11] MEDS: Thiamine 100 MG Tab PO SCH (20:01)
[2021-03-11] MEDS: Folic Acid 1 MG Tab PO SCH (20:01)
[2021-03-12] MEDS: VANCOmycin 1.75 GM/350 ML 1.75 GM in Premix Bag 1 BAG IV SCH (05:09)
[2021-03-12] MEDS: Pantoprazole 40 MG Tab.CR PO SCH (06:59)
[2021-03-12] MEDS: Aspirin 81 MG Tab.EC PO SCH (08:39)
[2021-03-12] MEDS: Sertraline 50 MG Tab PO SCH (08:39)
--- NOTE | 2021-03-12 09:52 | PCM.DCSUM1 ---
Discharge Summary - Hospital Course Brief History: This 55-year-old male with past medical history of alcohol abuse, hyperlipidemia hypertension, diabetes type 2 and COPD presented to the ER for R facial numbness and L hand numbness. Patient reports last evening his son found him on the ground at his home and had no idea what had happened. He reports since then he has had intermittent R facial numbness and tingling along with L hand numbness. He went to his PCP office with these complaints and was sent to the ER for immediate evaluation for TIA/CVA. He denies visual concerns, no neck pain. He reports some difficultly ambulating, feeling unsteady. He denies chest pain or SOB. No fevers or chills. NO URI symptoms. He denies abdominal pain, reports mild intermittent diarrhea. Denies lower extremity swelling. He reports he recently received a tattoo on his R calf, in his living room. He denies drainage, but does report redness around this. Denies recreational drug use recently, but reports many years ago. Reports significant alcohol use, 8-10 beers daily plus half a pint of whiskey daily. He reports when he stops drinking he gets shaky but denies seizures or hallucinations in the past. Reports smokeless tobacco use, 1 can a day. In the ER no leukocytosis noted hemoglobin 17.3 platelet count 264,000. INR 1.07. Sodium 137 potassium 4.3 BUN 14 creatinine 0.9 glucose 119 bilirubin 0.9 AST 18 mildly elevated 100 and 129 respectively. CK 258 troponin negative ethyl alcohol 150. Head CT obtained on patient due to stroke code no acute intracranial findings, near complete opacification of left maxillary sinus and scattered paranasal sinus mucosal thickening. NIH scale upon arrival to the ER was 0. Chest x-ray obtained reveals no acute cardiopulmonary process. Patient treated with Rocephin. Vital signs 97.4 heart rate 78 blood pressure 142/70 respiratory rate 18 oxygen 98% on room air. EKG reveals sinus rhythm with right bundle branch block unchanged from prior EKG heart rate 88 no acute ischemic changes. Head and neck CTAs obtained which reveal no intracranial proximal large vessel occlusion or flow- limiting luminal stenosis. Patent cervical arterial vasculature without hemodynamically significant luminal stenosis. Diagnosis: Stroke: No - Discharge Data Discharge Date: 03/12/21 Discharge Disposition: Home, Self-Care 01 Condition: Stable - Referral to Home Health Primary Care Physician: Oleg Cervantes MD - Discharge Diagnosis/Problem(s) (1) TIA (transient ischemic attack) SNOMED Code(s): 669493535 ICD Code: G45.9 - TRANSIENT CEREBRAL ISCHEMIC ATTACK, UNSPECIFIED Status: Acute (2) Cellulitis and abscess of right leg SNOMED Code(s): 467914795 ICD Code: L03.115 - CELLULITIS OF RIGHT LOWER LIMB; L02.415 - CUTANEOUS ABSCESS OF RIGHT LOWER LIMB Status: Acute (3) HTN (hypertension) SNOMED Code(s): 00991325 ICD Code: I10 - ESSENTIAL (PRIMARY) HYPERTENSION Status: Chronic (4) Alcohol abuse SNOMED Code(s): 96063509 ICD Code: F10.10 - ALCOHOL ABUSE, UNCOMPLICATED Status: Chronic (5) COPD (chronic obstructive pulmonary disease) SNOMED Code(s): 85513019 ICD Code: J44.9 - CHRONIC OBSTRUCTIVE PULMONARY DISEASE, UNSPECIFIED Status: Chronic (6) DM type 2 (diabetes mellitus, type 2) SNOMED Code(s): 80192650 ICD Code: E11.9 - TYPE 2 DIABETES MELLITUS WITHOUT COMPLICATIONS Status: Chronic Qualifiers: Diabetes mellitus fdc insulin use: without ferry terminal supervisor use Diabetes mellitus complication status: without complication Qualified Code(s): E11.9 - Type 2 diabetes mellitus without complications (7) HLD (hyperlipidemia) SNOMED Code(s): 60623868 ICD Code: E78.5 - HYPERLIPIDEMIA, UNSPECIFIED Status: Chronic - Patient Summary/Data Consults: Consultations 03/08/21 15:40 PT Evaluation and Treatment [CONS] Routine Hospital Course: Admission Diagnoses: TIA vs CVA Alcohol withdrawal Cellulitis on L calf, s/p tattoo Discharge Diagnoses: TIA Alcohol withdrawal- resolved Cellulitis L calf Other PMH HTN HLD ALcohol abuse tobacco abuse Michele was admitted secondary to suspected TIA vs CVA. CTA head and neck showed no significant stenosis or large vessel occlusion. MRI brain was obtained which revealed no acute infarction. Symptoms could be related to alcohol withdrawal the patient was experiencing at the same time. Patient was treated with CIWAA assessment and Ativan along with Valium for these. He was supplemented with Thiamine and folic acid and evaluated by PT. TIA symptoms resolved prior to arrival. He was monitored on telemetry with no signs of arrhythmia. Cholesterol monitored which showed good control on current statin with LDL 60. A1c well controlled with diet. Blood pressure well management with Lisinopril. Patient started on ASA daily. During his stay he was also treated with Rocephin and Vancomycin for infect L calf tattoo. The improved steadily and culture obtained showed staph aureus, non MRSA. He will be discharged home today as he has been weaned off of benzodiazepines for alcohol withdrawal safely. He will continue antibiotics for a 10 day course, 5 more days of oral therapy. Keflex 500 mg QID given for 5 more days. He is to continue statin and Lisinopril along with ASA daily. He was heavily counseled on tobacco and alcohol use, but it seems he is very unmotivated to quit either at this time, but is willing to cut done. He as given resources for sobriety along with Tobacco cessation programs and resources. He is to follow up with PCP 1 week. Return to the ED or clinic if concerns should arise. - Patient Instructions Diet: Heart Healthy Diet Activity: As Tolerated, No Strenuous Activities Showering/Bathing: May Shower Notify Provider of: Fever, Increased Pain, Swelling and Redness, Drainage, Nausea and/or Vomiting Other/Special Instructions: Please provide with resources for Human Services outpatient assistance with Alcohol rehab, Celebrate recovery, and AA meeting list. Provide with MD quits line assistance number - Discharge Plan *PRESCRIPTION DRUG MONITORING PROGRAM REVIEWED*: Not Applicable *COPY OF PRESCRIPTION DRUG MONITORING REPORT IN PATIENT ROSALIND: Not Applicable Prescriptions/Med Rec: Aspirin [Aspirin EC] 81 mg PO DAILY #30 tablet. cephALEXin [Keflex] 500 mg PO Q6H #20 cap Home Medications: Home Meds Albuterol Sulfate [Albuterol Sulfate Hfa] 2 inh IH QID PRN 03/08/21 [History] Sertraline [Zoloft] 50 mg PO DAILY 03/08/21 [History] atorvaSTATin [Lipitor] 20 mg PO BEDTIME 03/08/21 [History] lisinopriL [Lisinopril] 20 mg PO DAILY 03/08/21 [History] metFORMIN HCl [Metformin HCl] 500 mg PO BIDMEALS 03/08/21 [History] traZODone 50 mg PO BEDTIME PRN 03/08/21 [History] Aspirin [Aspirin EC] 81 mg PO DAILY #30 tablet. 03/12/21 [Rx] cephALEXin [Keflex] 500 mg PO Q6H #20 cap 03/12/21 [Rx] Oxygen Therapy Mode: Room Air Patient Handouts: Alcohol Abuse and Dependence Information, Adult, Transient Ischemic Attack, [id number], Alcohol Intoxication, [id number]-fp-[id number], Cellulitis, Adult, [id number]-lc-[id number], Aspirin and Your Heart, Cephalexin Tablets or Capsules, Smokeless Tobacco Information, Adult Referrals: Oleg Cervantes MD [Primary Care Provider] - 03/15/21 1:00 pm - Discharge Summary/Plan Comment DC Time >30 min.: No Total # of Minutes for Discharge Time: 25 - Patient Data Vitals - Most Recent: Last Vital Signs Temp 98.2 F 03/12/21 08:00 Pulse 72 03/12/21 08:00 Resp 17 03/12/21 08:00 BP 138/93 H 03/12/21 08:00 Pulse Ox 96 03/12/21 08:00 Weight - Most Recent: 126.189 kg I&O - Last 24 hours: Intake & Output 03/11/21 03/12/21 03/12/21 22:59 06:59 14:59 Intake Total 2178 2120 Output Total 0 Balance 2178 2120 Lab Results - Last 24 hrs: Laboratory Results - last 24 hr 03/11/21 03/11/21 03/12/21 Range/Units 12:17 17:48 04:02 POC Glucose 116 H 111 H (70-99) mg/dL Vancomycin Trough 13.7 H (5.0-10.0) ug/mL NGUYEN Results - Last 24 hrs: Microbiology 03/08/21 13:37 Aerobic Blood Culture - Preliminary Blood - Venous - Lab Draw NO GROWTH AFTER 3 DAYS Anaerobic Blood Culture - Preliminary NO GROWTH AFTER 3 DAYS 03/08/21 13:37 Aerobic Blood Culture - Preliminary Blood - Venous NO GROWTH AFTER 3 DAYS Anaerobic Blood Culture - Preliminary NO GROWTH AFTER 3 DAYS 03/08/21 21:45 Miscellaneous Reference Culture - Preliminary Wound Staphylococcus Aureus Gram Stain - Final Med Orders - Current: Current Medications Acetaminophen (Acetaminophen 325 Mg Tab) 650 mg PO Q4H PRN PRN Reason: Pain (Mild 1-3)/fever Last Admin: 03/11/21 17:40 Dose: 650 mg Documented by: Albuterol/Ipratropium (Albuterol/Ipratropium 3.0-0.5 Mg/3 Ml Neb Soln) 3 ml NEB Q4HRRT PRN PRN Reason: Shortness Of Breath/wheezing Aspirin (Aspirin 81 Mg Tab.Ec) 81 mg PO DAILY [facility] Last Admin: 03/12/21 08:39 Dose: 81 mg Documented by: Atorvastatin Calcium (Atorvastatin 40 Mg Tab) 80 mg PO BEDTIME [facility] Last Admin: 03/11/21 20:01 Dose: 80 mg Documented by: Docusate Sodium (Docusate Sodium 100 Mg Cap) 100 mg PO BID PRN PRN Reason: Constipation Folic Acid (Folic Acid 1 Mg Tab) 1 mg PO BEDTIME [facility] Last Admin: 03/11/21 20:01 Dose: 1 mg Documented by: Ceftriaxone Sodium/Dextrose 1 (gm/ Premix) 50 mls @ 100 mls/hr IV Q24H [facility] Last Admin: 03/11/21 11:10 Dose: 100 mls/hr Documented by: Vancomycin HCl 1.75 gm/ Premix 350 mls @ 200 mls/hr IV Q12H [facility] Last Admin: 03/12/21 05:09 Dose: 200 mls/hr Documented by: Lorazepam (Lorazepam 2 Mg/Ml Sdv) 0 mg IVPUSH Q2H PRN; Protocol PRN Reason: CIWA Last Admin: 03/09/21 05:05 Dose: 1 mg Documented by: Ondansetron HCl (Ondansetron 4 Mg/2 Ml Sdv) 4 mg IVPUSH Q4H PRN PRN Reason: Nausea Pantoprazole Sodium (Pantoprazole 40 Mg Tab.Cr) 40 mg PO ACBREAKFAST [facility] Last Admin: 03/12/21 06:59 Dose: 40 mg Documented by: Sertraline HCl (Sertraline 50 Mg Tab) 50 mg PO DAILY [facility] Last Admin: 03/12/21 08:39 Dose: 50 mg Documented by: Sodium Chloride (Sodium Chloride 0.9% 2.5 Ml Syringe) 2.5 ml FLUSH ASDIRECTED PRN PRN Reason: Keep Vein Open Thiamine HCl (Thiamine 100 Mg Tab) 100 mg PO BEDTIME [facility] Last Admin: 03/11/21 20:01 Dose: 100 mg Documented by: Trazodone HCl (Trazodone 50 Mg Tab) 50 mg PO BEDTIME PRN PRN Reason: Sleep Last Admin: 03/11/21 20:01 Dose: 50 mg Documented by: Vancomycin HCl (Pharmacy To Dose - Vancomycin) 1 dose .XX ASDIRECTED ONEAL Discontinued Medications Diazepam (Diazepam 5 Mg Tab) 10 mg PO BID ONEAL Last Admin: 03/10/21 08:23 Dose: 10 mg Documented by: Gadobenate Dimeglumine (Gadobenate Dimeglumine 529 Mg/Ml 20 Ml Sdv) 20 ml IVPUSH ONETIME STA Stop: 03/09/21 07:27 Last Admin: 03/09/21 07:49 Dose: 20 ml Documented by: Ceftriaxone Sodium/Dextrose 1 (gm/ Premix) 50 mls @ 100 mls/hr IV ONETIME ONE Stop: 03/08/21 13:43 Last Admin: 03/08/21 15:17 Dose: 100 mls/hr Documented by: Pantoprazole Sodium 40 mg/ (Sodium Chloride) 10 mls @ 300 mls/hr IV NOW ONE Stop: 03/08/21 16:05 Last Admin: 03/08/21 16:43 Dose: 300 mls/hr Documented by: Vancomycin HCl (Vancomycin 1.5 Gm/300 Ml) 300 mls @ 200 mls/hr IV Q12H [facility] Last Admin: 03/10/21 05:07 Dose: Not Given Documented by: Iopamidol (Iopamidol 755 Mg/Ml 500 Ml Multipack Bottle) 100 ml IVPUSH ONETIME STA Stop: 03/08/21 17:05 Last Admin: 03/08/21 17:04 Dose: 100 ml Documented by: Sodium Chloride (Sodium Chloride 0.9% 10 Ml Syringe) 10 ml FLUSH ASDIRECTED PRN PRN Reason: Keep Vein Open Last Admin: 03/08/21 15:27 Dose: 10 ml Documented by: Sodium Chloride (Sodium Chloride 0.9% 2.5 Ml Syringe) 2.5 ml FLUSH ASDIRECTED PRN PRN Reason: Keep Vein Open Last Admin: 03/08/21 15:27 Dose: 2.5 ml Documented by:
--- NOTE | 2021-03-12 15:59 | ECHO ---
EXAM DATE: 03/10/21 PATIENT'S AGE: 55 The ECHO report has been scanned into Personal and can be seen in this patient's EMR (Electronic Medical Record) under the REPORTS section. The report has also been scanned into PACS. ALONDRA
== END 2021-03-12 11:35 | disposition home or self-care (01) | DRG 69 ==
LOC: MW.ED 13:04 → MW.MS 14:51 → OBSVTOIN 03-10 15:20 → EEVIPCON 03-10 15:20 → MW.MS 03-10 16:35
PROVIDERS: ADMIT Student in an Organized Health Care Education/Training Program; ATTEND Student in an Organized Health Care Education/Training Program
DX: G45.9 Transient cerebral ischemic attack, unspecified (principal); L03.115 Cellulitis of right lower limb; L02.415 Cutaneous abscess of right lower limb; I10 Essential (primary) hypertension; E78.5 Hyperlipidemia, unspecified; E11.9 Type 2 diabetes mellitus without complications; J44.9 Chronic obstructive pulmonary disease, unspecified; F10.10 Alcohol abuse, uncomplicated; E78.00 Pure hypercholesterolemia, unspecified; F32.9 Major depressive disorder, single episode, unspecified; E66.9 Obesity, unspecified; Z90.89 Acquired absence of other organs; Z88.5 Allergy status to narcotic agent; Z79.82 Long term (current) use of aspirin; Z79.84 Long term (current) use of oral hypoglycemic drugs; Z79.899 Other long term (current) drug therapy; Z68.35 Body mass index [BMI] 35.0-35.9, adult; Z20.822 Contact with and (suspected) exposure to COVID-19
CPT/HCPCS: 36415; 70450; 70450-26; 70496; 70496-26; 70498; 70498-26; 70553; 70553-26; 71045; 71045-26; 80048; 80053; 80061; 80202; 80305-QW; 80307; 81001; 82550; 82607; 82947; 83036; 83735; 84443; 84484; 85025; 85610; 87040; 87070; 87077; 87186; 87205; 93005; 93306; 96365; 96366; 96367; 96375; 96376; 97161-GP; 99285-25; A9270-GY; A9577; C9113; G0378; J0696; J2060; J3370; Q9967; U0002

== ENCOUNTER 2021-05-14 17:42 | Emergency (ER) | payer OTHER | END 2021-05-14 18:46 | disposition left against medical advice (07) | LOC: MW.ED 17:42 | DX: M54.9 Dorsalgia, unspecified (principal); Z53.21 Procedure and treatment not carried out due to patient leaving prior to being seen by health care provider ==

== ENCOUNTER 2021-06-27 08:28 | Observation (INO) | payer OTHER ==
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
--- NOTE | 2021-06-27 08:50 | CT ---
INDICATION: Right-sided numbness TECHNIQUE: CT head without contrast. COMPARISON: 03/09/2021 FINDINGS: CSF spaces: Within normal limits for age. Brain parenchyma: The miles-white differentiation is normal. No sign of mass, hemorrhage, or midline shift. Skull base and calvarium: Maxillary sinus mucosal disease. The visualized orbits are grossly unremarkable. No skull fractures. IMPRESSION: Unremarkable noncontrast head CT. Please note that all CT scans at this facility use dose modulation, iterative reconstruction, and/or weight-based dosing when appropriate to reduce radiation dose to as low as reasonably achievable. Dictated by Beau Persaud MD @ 06/27/2021 8:48:20 AM (Electronically Signed)
[2021-06-27 09:06] LABS: BLOOD UREA NITROGEN,BUN 18 mg/dL (7.0-18.0); CARBON DIOXIDE,CO2 27.4 mmol/L (21.0-32.0); CHLORIDE,CL 101 mmol/L (98-107); GLUCOSE RANDOM 123 mg/dL (74-106); POTASSIUM,K 4.3 mmol/L (3.5-5.1); SODIUM,NA 139 mmol/L (136-148)
[2021-06-27] MEDS ORDERED: chlordiazePOXIDE 25 MG Cap PO ONE (09:24)
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
[2021-06-27] MEDS ORDERED: LORazepam 2 MG/ML SDV IVPUSH ONE (10:46)
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
[2021-06-27] MEDS ORDERED: Glucagon,Human Recombinant 1 MG Vial IM PRN (14:29)
[2021-06-27] MEDS ORDERED: 50% Dextrose in Water 50 ML Syringe IVPUSH PRN (14:29)
[2021-06-27] MEDS ORDERED: LORazepam 2 MG/ML SDV IVPUSH PRN (15:30)
[2021-06-27] MEDS ORDERED: Aspirin 81 MG Tab.Chew PO ONE (15:30)
[2021-06-27] MEDS ORDERED: Enoxaparin 40 MG/0.4 ML Syringe SUBCUT SCH (15:30)
[2021-06-27] MEDS: Sertraline 50 MG Tab PO SCH (17:05)
[2021-06-27] MEDS: Pantoprazole 40 MG Tab.CR PO SCH (17:05)
[2021-06-27] MEDS: Folic Acid 50 MG/10 ML MDV IV SCH (17:06)
[2021-06-27] MEDS: Thiamine 200 MG/2 ML MDV IVPUSH SCH (17:07)
[2021-06-27] MEDS ORDERED: Gadobenate Dimeglumine 529 MG/ML 20 ML SDV IVPUSH STA (18:24)
[2021-06-27] MEDS: Insulin Aspart 100 Units/ML 3 ML Pen SUBCUT SCH (18:43)
--- NOTE | 2021-06-27 19:42 | MR ---
INDICATION: Hemiparesthesias. TECHNIQUE: Brain MRI with contrast. The following sequences were obtained: Sagittal T1 weighted sequence. DWI and ADC mapping sequences. Axial FLAIR and ESTEBAN T2 weighted sequences. SWI sequence. Axial/coronal T1 weighted post-contrast sequences. 20 cc of MultiHance gadolinium based contrast agent was used. COMPARISON: Brain MRI from 03/09/2021. FINDINGS: No evidence of acute ischemia. No evidence of acute or chronic intracranial blood products. No mass or pathologic intracranial enhancement. Scattered FLAIR hyperintensities within the supratentorial white matter, typical for chronic microvascular ischemic change. No hydrocephalus or extra-axial collections. The pituitary gland, parasellar structures and optic chiasm are normal. Posterior fossa is normal. All the major intracranial vascular structures demonstrate normal flow-related signal. The orbital contents are normal. No calvarial or skull base marrow signal abnormality. Polypoid mucosal thickening involving the ethmoid air cells. Complete opacification of the left maxillary sinus by mucous retention cyst. Moderate right maxillary sinus mucosal thickening. No extracranial soft tissue findings. IMPRESSION: 1. No acute infarction or other acute intracranial pathology. 2. No mass or pathologic intracranial enhancement. 3. Minimal chronic microvascular ischemic changes within supratentorial white matter. 4. Moderately extensive inflammatory paranasal sinus opacification. Dictated by Sam Mccormick MD @ 06/27/2021 8:56:57 PM (Electronically Signed)
[2021-06-27] MEDS ORDERED: atorvaSTATin 20 MG Tab PO SCH (21:00)
[2021-06-27] MEDS ORDERED: Amitriptyline 25 MG Tab PO SCH (21:00)
[2021-06-27] MEDS: Gabapentin 300 MG Cap PO SCH (21:28)
[2021-06-28] MEDS: Gabapentin 300 MG Cap PO SCH (05:24)
[2021-06-28] MEDS: Insulin Aspart 100 Units/ML 3 ML Pen SUBCUT SCH (07:27)
[2021-06-28] MEDS: Folic Acid 50 MG/10 ML MDV IV SCH (08:47)
[2021-06-28] MEDS: Sertraline 50 MG Tab PO SCH (08:48)
[2021-06-28] MEDS: Thiamine 200 MG/2 ML MDV IVPUSH SCH (08:48)
[2021-06-28] MEDS: Pantoprazole 40 MG Tab.CR PO SCH (08:48)
[2021-06-28] MEDS ORDERED: Albuterol/Ipratropium 3.0-0.5 MG/3 ML Neb Soln NEB ONE (09:16)
--- NOTE | 2021-06-28 10:57 | PCM.DCSUM1 ---
<Patrick Kumari - Last Filed: 06/28/21 10:59> Discharge Summary - Hospital Course Free Text/Narrative:: The patient is a 56-year-old man, on day 2 of service, who has a significant past medical history of hypertension, hyperlipidemia, COPD, anxiety, and depression, who was admitted to the medical floor due to a trans-ischemic attack as well as symptoms of alcohol withdrawal. Throughout the patient's hospital stay his symptoms of right-sided numbness and sensation loss gradually improved. He had multiple imaging modalities done including a CT of the head and MRI of the brain which revealed no acute infarction or masses, but old minimal chronic microvascular ischemic changes within the supratentorial white matter. As a result the patient will be discharged on aspirin, 162 mg per oral route to be taken once a day. For his past medical history of COPD and asthma he is not using medications at home, and as a result will be sent home with an albuterol inhaler. The patient has also been advised to resume his home medications, especially for hypertension and hyperlipidemia in order to decrease the chances of future TIA/strokes. For the patient's COVID-19 infection, he does not require home oxygen and upon interview with him today he refused to be vaccinated. We gave him a one-time treatment of monoclonal antibodies, however even this treatment the patient is skeptical with, and is not sure if he will pursue it in the future. The patient is to follow-up with his PCP Dr. Cervantes in 1 to 2 weeks time. He has also been educated on the importance of being compliant with his medication and taking them at scheduled times, and for his alcohol consumption to join support groups such as alcoholics anonymous. The patient is now stable and can be discharged home. - Discharge Data Discharge Date: 06/28/21 Discharge Disposition: Home, Self-Care 01 Condition: Fair - Referral to Home Health Primary Care Physician: PCP None - Discharge Diagnosis/Problem(s) (1) COVID SNOMED Code(s): 026584418 ICD Code: U07.1 - COVID-19 Status: Acute (2) Anxiety SNOMED Code(s): 34447211 ICD Code: F41.9 - ANXIETY DISORDER, UNSPECIFIED Status: Acute (3) Depression SNOMED Code(s): 64849845 ICD Code: F32.A - DEPRESSION, UNSPECIFIED Status: Acute (4) TIA (transient ischemic attack) SNOMED Code(s): 239169044 ICD Code: G45.9 - TRANSIENT CEREBRAL ISCHEMIC ATTACK, UNSPECIFIED Status: Acute (5) DM type 2 (diabetes mellitus, type 2) SNOMED Code(s): 65732697 ICD Code: E11.9 - TYPE 2 DIABETES MELLITUS WITHOUT COMPLICATIONS Status: Chronic Qualifiers: Diabetes mellitus intermediate project manager insulin use: without care home use Diabetes mellitus complication status: without complication Qualified Code(s): E11.9 - Type 2 diabetes mellitus without complications (6) HLD (hyperlipidemia) SNOMED Code(s): 77685692 ICD Code: E78.5 - HYPERLIPIDEMIA, UNSPECIFIED Status: Chronic (7) HTN (hypertension) SNOMED Code(s): 03820352 ICD Code: I10 - ESSENTIAL (PRIMARY) HYPERTENSION Status: Chronic - Patient Instructions Diet: Heart Healthy Diet Activity: As Tolerated Showering/Bathing: May Shower Other/Special Instructions: -Return to the hospital if you have slurred speech, change in voice or vision, confusion, tingling, numbness, chest pain, palpitations. -Take your medication at scheduled times. -Follow-up with your PCP - Discharge Plan Prescriptions/Med Rec: Albuterol Sulfate [Albuterol Sulfate Hfa] 8.5 gm IH Q4H PRN #1 hfa.aer.ad PRN Reason: Shortness Of Breath Aspirin 162 mg PO DAILY #14 tab.chew Home Medications: Home Meds Sertraline [Zoloft] 50 mg PO DAILY 03/08/21 [History] atorvaSTATin [Lipitor] 20 mg PO BEDTIME 03/08/21 [History] lisinopriL [Lisinopril] 20 mg PO DAILY 03/08/21 [History] metFORMIN HCl [Metformin HCl] 500 mg PO BIDMEALS 03/08/21 [History] Aspirin [Aspirin EC] 81 mg PO DAILY #30 tablet.dr 03/12/21 [Rx] Amitriptyline [Elavil] 50 mg PO BEDTIME 06/27/21 [History] Cyclobenzaprine [Flexeril] 10 mg PO TID PRN 06/27/21 [History] Diclofenac Sodium [Diclofenac Sodium ER] 50 mg PO TID PRN 06/27/21 [History] Gabapentin [Neurontin] 300 mg PO TID 06/27/21 [History] Albuterol Sulfate [Albuterol Sulfate Hfa] 2 inh IH Q4H PRN #0 06/28/21 [Rx] Albuterol Sulfate [Albuterol Sulfate Hfa] 8.5 gm IH Q4H PRN #1 hfa.aer.ad 06/28/21 [Rx] Aspirin 162 mg PO DAILY #14 tab.chew 06/28/21 [Rx] Patient Handouts: Transient Ischemic Attack, [id number], COVID-19: How to Protect Yourself and Others - CDC, Frequently Asked Questions About COVID-19 Vaccination - [facility] (03/23/2021), Infection Prevention in the Home Referrals: Oleg Cervantes MD [Ordering Only Provider] - 07/03/21 10:15 am () - Discharge Summary/Plan Comment DC Time >30 min.: Yes Total # of Minutes for Discharge Time: 35 minutes - Review of Systems General: Denies: Fever, Weakness, Fatigue HEENT: Denies: Sore Throat Pulmonary: Denies: Shortness of Breath, Cough Cardiovascular: Denies: Chest Pain, Palpitations Gastrointestinal: Denies: Abdominal Pain, Constipation Genitourinary: Denies: Dysuria Neurological: Denies: Confusion, Numbness, Tremors, Weakness - Patient Data Vitals - Most Recent: Last Vital Signs Temp 98 F 06/28/21 10:13 Pulse 89 06/28/21 10:13 Resp 18 06/28/21 10:13 BP 161/105 H 06/28/21 10:13 Pulse Ox 94 L 06/28/21 10:13 Weight - Most Recent: 129.41 kg I&O - Last 24 hours: Intake & Output 06/27/21 06/28/21 06/28/21 22:59 06:59 14:59 Intake Total 450 440 Balance 450 440 Lab Results - Last 24 hrs: Laboratory Results - last 24 hr 06/27/21 06/27/21 06/28/21 Range/Units 17:00 17:09 06:24 POC Glucose 112 H 126 H (70-99) mg/dL Urine Opiates Screen NEGATIVE (NEGATIVE) Ur Oxycodone Screen NEGATIVE (NEGATIVE) Urine Methadone Screen NEGATIVE (NEGATIVE) Ur Barbiturates Screen NEGATIVE (NEGATIVE) Ur Phencyclidine Scrn NEGATIVE (NEGATIVE) Ur Amphetamine Screen NEGATIVE (NEGATIVE) U Methamphetamines Scrn NEGATIVE (NEGATIVE) U Benzodiazepines Scrn NEGATIVE (NEGATIVE) U Cocaine Metab Screen NEGATIVE (NEGATIVE) U Marijuana (THC) Screen POSITIVE (NEGATIVE) Med Orders - Current: Current Medications Amitriptyline HCl (Amitriptyline 25 Mg Tab) 50 mg PO BEDTIME [facility] Last Admin: 06/27/21 21:28 Dose: 50 mg Documented by: Atorvastatin Calcium (Atorvastatin 20 Mg Tab) 20 mg PO BEDTIME [facility] Last Admin: 06/27/21 21:28 Dose: 20 mg Documented by: Dextrose/Water (50% Dextrose In Water 50 Ml Syringe) 50 ml IVPUSH ASDIRECTED PRN PRN Reason: Hypoglycemia Enoxaparin Sodium (Enoxaparin 40 Mg/0.4 Ml Syringe) 40 mg SUBCUT Q24H [facility] Last Admin: 06/27/21 17:06 Dose: 40 mg Documented by: Folic Acid (Folic Acid 50 Mg/10 Ml Mdv) 1 mg IV DAILY [facility] Last Admin: 06/28/21 08:47 Dose: 1 mg Documented by: Gabapentin (Gabapentin 300 Mg Cap) 300 mg PO TID [facility] Last Admin: 06/28/21 05:24 Dose: 300 mg Documented by: Glucagon (Glucagon,Human Recombinant 1 Mg Vial) 1 mg IM ASDIRECTED PRN PRN Reason: Hypoglycemia Insulin Aspart (Insulin Aspart 100 Units/Ml 3 Ml Pen) 0 unit SUBCUT TIDAC [facility]; Protocol Last Admin: 06/28/21 07:27 Dose: Not Given Documented by: Lorazepam (Lorazepam 2 Mg/Ml Sdv) 0 mg IVPUSH Q4H PRN; Protocol PRN Reason: ciwaa Pantoprazole Sodium (Pantoprazole 40 Mg Tab.Cr) 40 mg PO DAILY [facility] Last Admin: 06/28/21 08:48 Dose: 40 mg Documented by: Sertraline HCl (Sertraline 50 Mg Tab) 50 mg PO DAILY [facility] Last Admin: 06/28/21 08:48 Dose: 50 mg Documented by: Thiamine HCl (Thiamine 200 Mg/2 Ml Mdv) 100 mg IVPUSH DAILY [facility] Last Admin: 06/28/21 08:48 Dose: 100 mg Documented by: Discontinued Medications Albuterol/Ipratropium (Albuterol/Ipratropium 3.0-0.5 Mg/3 Ml Neb Soln) 3 ml NEB ONETIME ONE Stop: 06/28/21 09:17 Last Admin: 12/09/21 09:27 Dose: 3 ml Documented by: Aspirin (Aspirin 81 Mg Tab.Chew) 81 mg PO ONETIME ONE Stop: 06/27/21 15:31 Last Admin: 06/27/21 17:05 Dose: 81 mg Documented by: Chlordiazepoxide HCl (Chlordiazepoxide 25 Mg Cap) 50 mg PO ONETIME ONE Stop: 06/27/21 09:25 Last Admin: 06/27/21 09:45 Dose: 50 mg Documented by: Gadobenate Dimeglumine (Gadobenate Dimeglumine 529 Mg/Ml 20 Ml Sdv) 20 ml IVPUSH ONETIME STA Stop: 06/27/21 18:25 Last Admin: 06/27/21 18:25 Dose: 20 ml Documented by: Casirivimab 600 mg/ Imdevimab (600 mg/ Sodium Chloride) 110 mls @ 220 mls/hr IV ONETIME ONE Stop: 06/28/21 09:59 Last Admin: 06/28/21 09:33 Dose: 220 mls/hr Documented by: Lorazepam (Lorazepam 2 Mg/Ml Sdv) 2 mg IVPUSH ONETIME ONE Stop: 06/27/21 10:47 Last Admin: 06/27/21 11:23 Dose: 2 mg Documented by: - Exam General: Reports: Alert, Oriented, Cooperative HEENT: Reports: Mucous Membr. Moist/[place] Neck: Reports: Trachea Midline Lungs: Reports: Clear to Auscultation, Normal Respiratory Effort Cardiovascular: Reports: Regular Rate, Regular Rhythm GI/Abdominal Exam: Normal Bowel Sounds, Soft, Non-Tender Neurological: Reports: Normal Speech, Strength Equal Bilateral, Sensation Intact <Donny Santos - Last Filed: 06/29/21 18:36> Discharge Summary - Referral to Home Health Primary Care Physician: PCP None - Patient Data Vitals - Most Recent: Last Vital Signs Temp 36.6 C 06/28/21 10:13 Pulse 89 06/28/21 10:13 Resp 18 06/28/21 10:13 BP 161/105 H 06/28/21 10:13 Pulse Ox 94 L 06/28/21 10:13 Med Orders - Current: Current Medications Discontinued Medications Albuterol/Ipratropium (Albuterol/Ipratropium 3.0-0.5 Mg/3 Ml Neb Soln) 3 ml NEB ONETIME ONE Stop: 06/28/21 09:17 Last Admin: 06/28/21 09:27 Dose: 3 ml Documented by: Amitriptyline HCl (Amitriptyline 25 Mg Tab) 50 mg PO BEDTIME [facility] Last Admin: 06/27/21 21:28 Dose: 50 mg Documented by: Aspirin (Aspirin 81 Mg Tab.Chew) 81 mg PO ONETIME ONE Stop: 06/27/21 15:31 Last Admin: 06/27/21 17:05 Dose: 81 mg Documented by: Atorvastatin Calcium (Atorvastatin 20 Mg Tab) 20 mg PO BEDTIME [facility] Last Admin: 06/27/21 21:28 Dose: 20 mg Documented by: Chlordiazepoxide HCl (Chlordiazepoxide 25 Mg Cap) 50 mg PO ONETIME ONE Stop: 06/27/21 09:25 Last Admin: 06/27/21 09:45 Dose: 50 mg Documented by: Dextrose/Water (50% Dextrose In Water 50 Ml Syringe) 50 ml IVPUSH ASDIRECTED PRN PRN Reason: Hypoglycemia Enoxaparin Sodium (Enoxaparin 40 Mg/0.4 Ml Syringe) 40 mg SUBCUT Q24H [facility] Last Admin: 06/27/21 17:06 Dose: 40 mg Documented by: Folic Acid (Folic Acid 50 Mg/10 Ml Mdv) 1 mg IV DAILY [facility] Last Admin: 06/28/21 08:47 Dose: 1 mg Documented by: Gabapentin (Gabapentin 300 Mg Cap) 300 mg PO TID [facility] Last Admin: 06/28/21 05:24 Dose: 300 mg Documented by: Gadobenate Dimeglumine (Gadobenate Dimeglumine 529 Mg/Ml 20 Ml Sdv) 20 ml IVPUSH ONETIME STA Stop: 06/27/21 18:25 Last Admin: 06/27/21 18:25 Dose: 20 ml Documented by: Glucagon (Glucagon,Human Recombinant 1 Mg Vial) 1 mg IM ASDIRECTED PRN PRN Reason: Hypoglycemia Casirivimab 600 mg/ Imdevimab (600 mg/ Sodium Chloride) 110 mls @ 220 mls/hr IV ONETIME ONE Stop: 06/28/21 09:59 Last Admin: 06/28/21 09:33 Dose: 220 mls/hr Documented by: Insulin Aspart (Insulin Aspart 100 Units/Ml 3 Ml Pen) 0 unit SUBCUT TIDAC [facility]; Protocol Last Admin: 06/28/21 07:27 Dose: Not Given Documented by: Lorazepam (Lorazepam 2 Mg/Ml Sdv) 2 mg IVPUSH ONETIME ONE Stop: 06/27/21 10:47 Last Admin: 06/27/21 11:23 Dose: 2 mg Documented by: Lorazepam (Lorazepam 2 Mg/Ml Sdv) 0 mg IVPUSH Q4H PRN; Protocol PRN Reason: ciwaa Pantoprazole Sodium (Pantoprazole 40 Mg Tab.Cr) 40 mg PO DAILY [facility] Last Admin: 06/28/21 08:48 Dose: 40 mg Documented by: Sertraline HCl (Sertraline 50 Mg Tab) 50 mg PO DAILY [facility] Last Admin: 06/28/21 08:48 Dose: 50 mg Documented by: Thiamine HCl (Thiamine 200 Mg/2 Ml Mdv) 100 mg IVPUSH DAILY [facility] Last Admin: 06/28/21 08:48 Dose: 100 mg Documented by: - Free Text/Narrative Note: I have seen and examined the patient. I have discussed findings and treatment plan with the resident. I agree with the assessment and plan as outlined in the following note.
== END 2021-06-28 11:45 | disposition home or self-care (01) ==
LOC: MW.ED 08:28 → MW.MS 09:56
PROVIDERS: ADMIT Internal Medicine; ATTEND Internal Medicine
DX: G45.9 Transient cerebral ischemic attack, unspecified (principal); I10 Essential (primary) hypertension; U07.1 COVID-19; E78.5 Hyperlipidemia, unspecified; J44.9 Chronic obstructive pulmonary disease, unspecified; F41.9 Anxiety disorder, unspecified; F32.A Depression, unspecified; F10.239 Alcohol dependence with withdrawal, unspecified; E78.00 Pure hypercholesterolemia, unspecified; E66.9 Obesity, unspecified; E11.9 Type 2 diabetes mellitus without complications; Z79.4 Long term (current) use of insulin; Z88.5 Allergy status to narcotic agent; Z79.899 Other long term (current) drug therapy; Z79.82 Long term (current) use of aspirin; Z98.890 Other specified postprocedural states; Z79.84 Long term (current) use of oral hypoglycemic drugs; Z68.36 Body mass index [BMI] 36.0-36.9, adult
CPT/HCPCS: 36415; 70450; 70553; 71045; 80053; 80305; 80307; 82947; 83735; 84100; 84484; 85025; 87635; 93005; 96372; 96375; 96376; 99285; A9270; A9577; G0378; J1650; J1815; J2060; J3411; M0243; Q0243; 96374; J7620-GY; U0002

== ENCOUNTER 2024-07-05 08:59 | Emergency (ER) | payer MEDICARE ==
[2024-07-05] MEDS: methylPREDNISolone Sodium Succinate 125 MG/2 ML SDV IVPUSH ONE (09:26)
[2024-07-05] MEDS: Ondansetron 4 MG/2 ML SDV IVPUSH ONE (09:33)
[2024-07-05] MEDS: Albuterol/Ipratropium 3.0-0.5 MG/3 ML Neb Soln NEB ONE (09:37)
[2024-07-05 09:39] LABS: BASOPHILS ABSOLUTE AUTO 0.05 K/uL (0.00-0.20); BASOPHILS PERCENT AUTO 0.8 % (0.0-1.0); EOSINOPHILS ABSOLUTE AUTO 0.01 K/uL (0.00-0.45); EOSINOPHILS PERCENT AUTO 0.2 % (0.0-6.0); HEMATOCRIT 45.7 % (42.0-52.0); HEMOGLOBIN 16.3 g/dL (14.0-18.0); IMMATURE GRAN ABSOLUTE AUTO 0.03 K/uL (0.00-0.05); IMMATURE GRAN PERCENT AUTO 0.5 % (0.0-0.4); LYMPHOCYTES ABSOLUTE AUTO 0.78 K/uL (1.00-4.80); LYMPHOCYTES PERCENT AUTO 13.1 % (24.0-44.0); MEAN CORPUSCULAR HEMOGLOBIN 34.1 pg (28.0-32.0); MEAN CORPUSCULAR HGB CONC 35.7 g/dL (32.0-36.0); MEAN CORPUSCULAR VOLUME 95.6 fL (83.0-99.0); MEAN PLATELET VOLUME 9.9 fL (9.4-12.4); MONOCYTES ABSOLUTE AUTO 0.82 K/uL (0.00-0.80); MONOCYTES PERCENT AUTO 13.8 % (0.0-8.0); NEUTROPHILS ABSOLUTE AUTO 4.25 K/uL (1.80-7.70); NEUTROPHILS PERCENT AUTO 71.6 % (41.0-71.0); PLATELET COUNT,PLT 163 K/uL (150-400); RED BLOOD CELL COUNT 4.78 M/uL (4.52-5.90); WHITE BLOOD CELL COUNT,WBC 5.94 K/uL (3.9-11.3)
[2024-07-05 09:57] LABS: APPEARANCE,URINE CLEAR; BILIRUBIN,URINE NEGATIVE (NEGATIVE); COLOR,URINE YELLOW; GLUCOSE,URINE NEGATIVE (NEGATIVE); KETONES,URINE NEGATIVE (NEGATIVE); LEUKOCYTE ESTERASE,URINE NEGATIVE (NEGATIVE); NITRITE,URINE NEGATIVE (NEGATIVE); OCCULT BLOOD,URINE NEGATIVE (NEGATIVE); PROTEIN,URINE TRACE mg/dL (NEGATIVE)
[2024-07-05 10:06] LABS: LACTIC ACID 1.9 mmol/L (0.4-2.0)
[2024-07-05 10:07] LABS: BACTERIA,URINE RARE (NEGATIVE); EPITHELIAL CELLS,URINE FEW (NONE-FEW); MUCUS,URINE LIGHT (NONE-MOD); RBC,URINE 0-1 (0-2/HPF)
[2024-07-05 10:19] LABS: A/G RATIO 1.1 (0.9-1.6); ALBUMIN 3.8 g/dL (3.4-5.0); BILIRUBIN TOTAL 1.2 mg/dL (0.2-1.0); CALCIUM 8.4 mg/dL (8.5-10.1); CARBON DIOXIDE,CO2 24.7 mmol/L (21.0-32.0); CREATININE 0.9 mg/dL (0.8-1.3); EST CRCL DRUG DOSING (CG) 94.6 mL/min; POTASSIUM,K 4.1 mmol/L (3.5-5.1); PROTEIN TOTAL,TP 7.4 g/dL (6.4-8.2)
[2024-07-05] MEDS: Iopamidol 755 MG/ML 500 ML Multipack Bottle IVPUSH STA (11:29)
[2024-07-05] MEDS: Benzonatate 100 MG Cap PO ONE (11:58)
== END 2024-07-05 14:36 | disposition home or self-care (01) ==
LOC: MW.ED 08:59
DX: J10.1 Influenza due to other identified influenza virus with other respiratory manifestations (principal); K52.9 Noninfective gastroenteritis and colitis, unspecified; I10 Essential (primary) hypertension; E78.00 Pure hypercholesterolemia, unspecified; J44.9 Chronic obstructive pulmonary disease, unspecified; E66.9 Obesity, unspecified; Z87.891 Personal history of nicotine dependence; Z79.899 Other long term (current) drug therapy; Z79.84 Long term (current) use of oral hypoglycemic drugs; Z88.5 Allergy status to narcotic agent; Z68.41 Body mass index [BMI] 40.0-44.9, adult
CPT/HCPCS: 36415; 71045; 74177; 80053; 81001; 82947; 83605; 83690; 83880; 85025; 85379; 87040; 87428; 93005; 94640; 96374; 96375; 99285; A9270; J2405; J2919; Q9967; 93010; 99284; J7620-GY

== ENCOUNTER 2024-12-21 05:32 | Emergency (ER) | payer MEDICARE ==
[2024-12-21] MEDS ORDERED: Sodium Chloride 0.9% 2.5 ML Syringe FLUSH PRN (06:23)
[2024-12-21] MEDS ORDERED: Sodium Chloride 0.9% 20 ML SDV IV PRN (06:23)
[2024-12-21] MEDS ORDERED: Sodium Chloride 0.9% 10 ML Syringe FLUSH PRN (06:23)
[2024-12-21] MEDS: Albuterol/Ipratropium 3.0-0.5 MG/3 ML Neb Soln NEB ONE ×2 (06:25→07:45)
[2024-12-21 06:36] LABS: BASOPHILS PERCENT AUTO 0.9 % (0.0-1.0); EOSINOPHILS ABSOLUTE AUTO 1.05 K/uL (0.00-0.45); EOSINOPHILS PERCENT AUTO 9.5 % (0.0-6.0); HEMATOCRIT 44.7 % (42.0-52.0); HEMOGLOBIN 16.3 g/dL (14.0-18.0); IMMATURE GRAN ABSOLUTE AUTO 0.06 K/uL (0.00-0.05); IMMATURE GRAN PERCENT AUTO 0.5 % (0.0-0.4); LYMPHOCYTES PERCENT AUTO 29.9 % (24.0-44.0); MEAN CORPUSCULAR HEMOGLOBIN 34.2 pg (28.0-32.0); MEAN CORPUSCULAR HGB CONC 36.5 g/dL (32.0-36.0); MEAN CORPUSCULAR VOLUME 93.9 fL (83.0-99.0); MEAN PLATELET VOLUME 9.8 fL (9.4-12.4); MONOCYTES ABSOLUTE AUTO 1.02 K/uL (0.00-0.80); MONOCYTES PERCENT AUTO 9.2 % (0.0-8.0); NEUTROPHILS ABSOLUTE AUTO 5.51 K/uL (1.80-7.70); PLATELET COUNT,PLT 217 K/uL (150-400); RED BLOOD CELL COUNT 4.76 M/uL (4.52-5.90); WHITE BLOOD CELL COUNT,WBC 11.04 K/uL (3.9-11.3)
[2024-12-21] MEDS: methylPREDNISolone Sodium Succinate 125 MG/2 ML SDV IVPUSH ONE (06:36)
[2024-12-21] MEDS: Magnesium Sulfate 2 GM/50 mL 2 GM in Premix Bag 1 BAG IV ONE (06:36)
[2024-12-21 07:04] LABS: A/G RATIO 0.9 (0.9-1.6); ALANINE AMINOTRANSFERASE,ALT 46 IU/L (14-63); ALBUMIN 3.6 g/dL (3.4-5.0); ALKALINE PHOSPHATASE 82 U/L (46-116); ASPARTATE AMNIOTRANSFERASE,AST 37 IU/L (15-37); BILIRUBIN TOTAL 1.1 mg/dL (0.2-1.0); BLOOD UREA NITROGEN,BUN 17 mg/dL (7.0-18.0); CALCIUM 8.9 mg/dL (8.5-10.1); CARBON DIOXIDE,CO2 24.1 mmol/L (21.0-32.0); CHLORIDE,CL 98 mmol/L (98-107); CREATININE 1.1 mg/dL (0.8-1.3); ESTIMATED GFR 76 mL/min (>60); GLUCOSE RANDOM 230 mg/dL (74-106); MAGNESIUM 1.7 mg/dL (1.8-2.4); POTASSIUM,K 4.3 mmol/L (3.5-5.1); PRO B-TYPE NATRIUR PEPT,BNPPRO 35 pg/mL (0-125); PROTEIN TOTAL,TP 7.5 g/dL (6.4-8.2); SODIUM,NA 132 mmol/L (136-148)
[2024-12-21] MEDS: diphenhydrAMINE 25 MG Cap PO ONE (08:33)
== END 2024-12-21 09:16 | disposition home or self-care (01) ==
LOC: MW.ED 05:32
DX: J44.1 Chronic obstructive pulmonary disease with (acute) exacerbation (principal); E78.00 Pure hypercholesterolemia, unspecified; I10 Essential (primary) hypertension; E66.9 Obesity, unspecified; Z79.4 Long term (current) use of insulin; Z79.899 Other long term (current) drug therapy; Z88.5 Allergy status to narcotic agent; Z75.3 Unavailability and inaccessibility of health-care facilities
CPT/HCPCS: 36415; 71046; 80053; 83735; 83880; 84484; 85025; 93005; 94640; 96365; 96375; 99284; A9270; J2919; J3475; 93010

== ENCOUNTER 2025-02-25 00:43 | Emergency (ER) | payer MEDICARE ==
[2025-02-25 00:59] LABS: BASOPHILS ABSOLUTE AUTO 0.10 K/uL (0.00-0.20); BASOPHILS PERCENT AUTO 1.1 % (0.0-1.0); EOSINOPHILS ABSOLUTE AUTO 1.07 K/uL (0.00-0.45); EOSINOPHILS PERCENT AUTO 11.9 % (0.0-6.0); IMMATURE GRAN ABSOLUTE AUTO 0.02 K/uL (0.00-0.05); IMMATURE GRAN PERCENT AUTO 0.2 % (0.0-0.4); LYMPHOCYTES ABSOLUTE AUTO 4.21 K/uL (1.00-4.80); LYMPHOCYTES PERCENT AUTO 46.9 % (24.0-44.0); MEAN PLATELET VOLUME 9.6 fL (9.4-12.4); MONOCYTES ABSOLUTE AUTO 0.79 K/uL (0.00-0.80); MONOCYTES PERCENT AUTO 8.8 % (0.0-8.0); NEUTROPHILS ABSOLUTE AUTO 2.78 K/uL (1.80-7.70); NEUTROPHILS PERCENT AUTO 31.1 % (41.0-71.0); NRBC ABSOLUTE 0.00 K/uL (0.00-0.02); NRBC PERCENT 0.0 /100WBC (0.0-0.2); PLATELET COUNT,PLT 263 K/uL (150-400); RED BLOOD CELL COUNT 4.90 M/uL (4.52-5.90); WHITE BLOOD CELL COUNT,WBC 8.97 K/uL (3.9-11.3)
[2025-02-25] MEDS: methylPREDNISolone Sodium Succinate 125 MG/2 ML SDV IVPUSH ONE (01:00)
[2025-02-25 01:06] LABS: BASE EXCESS VENOUS 2.3 (-2.0-3.0); BICARBONATE,VENOUS 27.0 mEq/L (22-29); PCO2 VENOUS 42.0 mmHG (41-51); PH,VENOUS 7.42 (7.32-7.43); PO2 VENOUS 67.0 mmHG (35-45)
[2025-02-25] MEDS: Magnesium Sulfate 2 GM/50 mL 2 GM in Premix Bag 1 BAG IV ONE (01:10)
[2025-02-25] MEDS: Ondansetron 4 MG/2 ML SDV IVPUSH ONE (01:10)
[2025-02-25 01:13] LABS: INR 1.09 (0.86-1.11); PTT,PARTIAL THROMBOPLSTIN TIME 27.9 SEC (23.9-30.7)
[2025-02-25] MEDS: cefTRIAXone 2 GM in Water For Injection, Sterile 20 ML IVPUSH ONE (01:21)
[2025-02-25] MEDS: Albuterol 0.083% 2.5 MG/3 ML Neb Soln NEB STA (01:25)
[2025-02-25 01:38] LABS: A/G RATIO 1.0 (0.9-1.6); ALANINE AMINOTRANSFERASE,ALT 91.0 IU/L (14-63); ASPARTATE AMNIOTRANSFERASE,AST 97.0 IU/L (15-37); BILIRUBIN TOTAL 0.6 mg/dL (0.2-1.0); BLOOD UREA NITROGEN,BUN 9.0 mg/dL (7.0-18.0); CARBON DIOXIDE,CO2 26.3 mmol/L (21.0-32.0); CHLORIDE,CL 103.0 mmol/L (98-107); CREATININE 0.8 mg/dL (0.8-1.3); EST CRCL DRUG DOSING (CG) 112.74 mL/min; GLUCOSE RANDOM 139.0 mg/dL (74-106); POTASSIUM,K 4.2 mmol/L (3.5-5.1); PRO B-TYPE NATRIUR PEPT,BNPPRO 52.0 pg/mL (0-125); PROTEIN TOTAL,TP 7.6 g/dL (6.4-8.2); SODIUM,NA 142.0 mmol/L (136-148)
[2025-02-25 01:40] LABS: ESTIMATED GFR 101.0 mL/min (>60)
[2025-02-25] MEDS: Iopamidol 755 Mg/ML 100 ML Bottle IVPUSH ONE (01:56)
[2025-02-25 02:19] LABS: PCO2 VENOUS 44.0 mmHG (41-51); PH,VENOUS 7.39 (7.32-7.43); PO2 VENOUS 60.0 mmHG (35-45)
[2025-02-25 02:20] LABS: BASE EXCESS VENOUS 1.2 (-2.0-3.0); BICARBONATE,VENOUS 27.0 mEq/L (22-29)
== END 2025-02-25 02:55 | disposition home or self-care (01) ==
LOC: MW.ED 00:43
DX: J44.1 Chronic obstructive pulmonary disease with (acute) exacerbation (principal); F10.920 Alcohol use, unspecified with intoxication, uncomplicated; R94.5 Abnormal results of liver function studies; R79.89 Other specified abnormal findings of blood chemistry; E78.00 Pure hypercholesterolemia, unspecified; I10 Essential (primary) hypertension; Z88.5 Allergy status to narcotic agent; Z79.51 Long term (current) use of inhaled steroids; Z79.899 Other long term (current) drug therapy; Z79.4 Long term (current) use of insulin; Y90.9 Presence of alcohol in blood, level not specified
CPT/HCPCS: 36415; 71045; 71275; 80053; 80307; 82803; 83605; 83690; 83735; 83880; 84484; 85025; 85379; 85610; 85730; 87040; 87426; 93005; 96365; 96367; 96375; 99285; A4216; A9270; J0696; J1271; J2405; J2919; J3475; Q9967; 93010; 99284

== ENCOUNTER 2025-02-25 15:58 | Emergency (ER) | payer MEDICARE | END 2025-02-25 17:24 | disposition left against medical advice (07) | LOC: MW.ED 15:58 | DX: Z53.21 Procedure and treatment not carried out due to patient leaving prior to being seen by health care provider (principal) ==

== ENCOUNTER 2025-06-13 18:20 | Emergency (ER) | payer MEDICARE ==
[2025-06-13] MEDS ORDERED: Sodium Chloride 0.9% 10 ML Syringe FLUSH PRN (19:18)
[2025-06-13] MEDS ORDERED: Sodium Chloride 0.9% 2.5 ML Syringe FLUSH PRN (19:18)
[2025-06-13] MEDS: cefTRIAXone 2 GM in Water For Injection, Sterile 20 ML IVPUSH ONE (19:41)
[2025-06-13 20:01] LABS: BASOPHILS ABSOLUTE AUTO 0.07 K/uL (0.00-0.20); BASOPHILS PERCENT AUTO 0.8 % (0.0-1.0); EOSINOPHILS ABSOLUTE AUTO 0.24 K/uL (0.00-0.45); EOSINOPHILS PERCENT AUTO 2.7 % (0.0-6.0); IMMATURE GRAN ABSOLUTE AUTO 0.04 K/uL (0.00-0.05); IMMATURE GRAN PERCENT AUTO 0.5 % (0.0-0.4); LYMPHOCYTES ABSOLUTE AUTO 2.68 K/uL (1.00-4.80); LYMPHOCYTES PERCENT AUTO 30.6 % (24.0-44.0); MEAN PLATELET VOLUME 10.5 fL (9.4-12.4); MONOCYTES ABSOLUTE AUTO 1.33 K/uL (0.00-0.80); MONOCYTES PERCENT AUTO 15.2 % (0.0-8.0); NEUTROPHILS ABSOLUTE AUTO 4.39 K/uL (1.80-7.70); NEUTROPHILS PERCENT AUTO 50.2 % (41.0-71.0); NRBC ABSOLUTE 0.00 K/uL (0.00-0.02); NRBC PERCENT 0.0 /100WBC (0.0-0.2); PLATELET COUNT,PLT 179 K/uL (150-400); RED BLOOD CELL COUNT 4.40 M/uL (4.52-5.90); WHITE BLOOD CELL COUNT,WBC 8.75 K/uL (3.9-11.3)
[2025-06-13 20:41] LABS: ALANINE AMINOTRANSFERASE,ALT 114.0 IU/L (14-63); ASPARTATE AMNIOTRANSFERASE,AST 77.0 IU/L (15-37); BILIRUBIN TOTAL 0.8 mg/dL (0.2-1.0); BLOOD UREA NITROGEN,BUN 14.0 mg/dL (7.0-18.0); CARBON DIOXIDE,CO2 26.6 mmol/L (21.0-32.0); CHLORIDE,CL 96.0 mmol/L (98-107); CREATININE 1.0 mg/dL (0.8-1.3); EST CRCL DRUG DOSING (CG) 89.05 mL/min; GLUCOSE RANDOM 243.0 mg/dL (74-106); POTASSIUM,K 3.9 mmol/L (3.5-5.1); PROTEIN TOTAL,TP 7.2 g/dL (6.4-8.2); SODIUM,NA 134.0 mmol/L (136-148)
[2025-06-13 20:46] LABS: A/G RATIO 0.9 (0.9-1.6); ESTIMATED GFR 85.0 mL/min (>60)
== END 2025-06-13 22:18 | disposition home or self-care (01) ==
LOC: MW.ED 18:20
DX: S91.341A Puncture wound with foreign body, right foot, initial encounter (principal); E11.628 Type 2 diabetes mellitus with other skin complications; L08.9 Local infection of the skin and subcutaneous tissue, unspecified; I10 Essential (primary) hypertension; E78.00 Pure hypercholesterolemia, unspecified; E66.9 Obesity, unspecified; J44.9 Chronic obstructive pulmonary disease, unspecified; Z79.899 Other long term (current) drug therapy; Z79.4 Long term (current) use of insulin; Z88.5 Allergy status to narcotic agent; Z75.3 Unavailability and inaccessibility of health-care facilities; W45.8XXA Other foreign body or object entering through skin, initial encounter
CPT/HCPCS: 28190; 36415; 73630; 80053; 82947; 83036; 85025; 86140; 87040; 96374; 99284; A4216; J0696; J2003; 99283